=== PATIENT | male | born 1965 | race Caucasian/White ===

== ENCOUNTER 2020-08-23 09:15 | Inpatient (IN) | payer OTHER ==
[2020-08-23 09:56] VITALS: BMI 17.9
[2020-08-23] MEDS ORDERED: chlordiazePOXIDE HCL 25 MG CAPSULE PO PRN (10:25)
[2020-08-23] MEDS ORDERED: NICOTINE POLACRILEX 2 MG GUM BUC PRN (10:25)
[2020-08-23] MEDS ORDERED: MAG HYDROX/AL HYDROX/SIMETH 30 ML UNIT-DOSE CUP PO PRN (10:25)
[2020-08-23] MEDS ORDERED: IBUPROFEN 400 MG TABLET (FP) PO PRN (10:25)
[2020-08-23] MEDS ORDERED: METHOCARBAMOL 500 MG TABLET PO PRN (10:25)
[2020-08-23] MEDS ORDERED: ONDANSETRON *ODT* 4 MG TABLET SL PRN (10:25)
[2020-08-23] MEDS ORDERED: MAGNESIUM HYDROX 2400MG/30ML ORAL SUSPENSION 30 ML CUP PO PRN (10:25)
[2020-08-23] MEDS ORDERED: BISMUTH SUBSALICYLATE 262 MG/15 ML BTL PO PRN (10:25)
[2020-08-23] MEDS ORDERED: MAGNESIUM CITRATE 300 ML BOTTLE PO PRN (10:25)
[2020-08-23] MEDS ORDERED: ACETAMINOPHEN 325 MG TABLET (FP) PO PRN ×2 (10:25)
[2020-08-23] MEDS ORDERED: MENTHOL/PHENOL 1 EACH UD MM PRN (10:25)
[2020-08-23] MEDS ORDERED: METHADONE HCL 10 MG TABLET (FOR DETOX USE ONLY) PO ONE (10:25)
[2020-08-23] MEDS ORDERED: cloNIDine HCL 0.1 MG TABLET PO PRN (10:25)
[2020-08-23] MEDS ORDERED: PATIENT'S OWN MEDICATION (NON-FORMULARY) (Dolutegravir Sodium/Lamivudine [Dovato 50-300 Mg PO SCH (10:30)
[2020-08-23] MEDS ORDERED: PATIENT'S OWN MEDICATION (NON-FORMULARY) (Bictegrav/Emtricit/Tenofov Ala 1 EACH Tablet) PO SCH (10:30)
[2020-08-23] MEDS: chlordiazePOXIDE HCL 25 MG CAPSULE PO SCH ×3 (11:25→22:32)
[2020-08-23] MEDS: NICOTINE 7 MG/24 HOURS TOPICAL PATCH TD SCH (11:30)
[2020-08-23] MEDS: PRENATAL VITAMINS W/ FOLIC ACID TABLET (FP) PO SCH (11:30)
[2020-08-23] MEDS: DOLUTEGRAVIR SODIUM 50 MG TABLET (NON-FORMULARY) PO SCH (12:11)
[2020-08-23] MEDS: DAPSONE 100 MG TABLET PO SCH (12:11)
[2020-08-23] MEDS: hydrOXYzine PAMOATE 25 MG CAPSULE (FP) PO SCH ×3 (14:03→22:32)
[2020-08-23 14:12] LABS: POTASSIUM 4.3 mmol/L (3.5-5.1)
[2020-08-23 14:13] LABS: HEMATOCRIT 44.3 % (35.4-49); HEMOGLOBIN 14.7 GM/dL (11.7-16.9); MCH 31.5 pg (25.7-33.7); MCHC 33.1 g/dl (32.0-35.9); MEAN CELL VOLUME 95.2 fl (80-96); MEAN PLT VOLUME 9.3 fl (7.5-11.1); PLATELET COUNT 213 K/MM3 (134-434); RBC 4.66 M/mm3 (4.00-5.60); RDW 15.3 % (11.9-15.9); WHITE BLOOD COUNT 4.3 K/mm3 (4.0-10.0)
[2020-08-23 14:17] LABS: ALBUMIN 3.2 g/dl (3.4-5.0); CALCIUM 9.1 mg/dL (8.5-10.1)
[2020-08-23 14:18] LABS: BLOOD UREA NITROGEN 11.2 mg/dL (7-18)
[2020-08-23 14:21] LABS: CREATININE 0.8 mg/dL (0.55-1.3)
[2020-08-23 14:22] LABS: BILIRUBIN,TOTAL 0.7 mg/dL (0.2-1); TOT PROT 8.6 g/dl (6.4-8.2)
[2020-08-23] MEDS: QUEtiapine FUMARATE 25 MG TABLET PO SCH (22:32)
[2020-08-23] MEDS: THIAMINE HCL 100 MG TABLET (FP) PO SCH (22:32)
[2020-08-23] MEDS: MELATONIN 5 MG TABLETS PO SCH (22:32)
[2020-08-24] MEDS: chlordiazePOXIDE HCL 25 MG CAPSULE PO SCH ×4 (05:23→22:19)
[2020-08-24] MEDS: hydrOXYzine PAMOATE 25 MG CAPSULE (FP) PO SCH ×5 (05:24→22:19)
[2020-08-24] MEDS ORDERED: METHADONE HCL 10 MG TABLET (FOR DETOX USE ONLY) ONE (08:27)
[2020-08-24] MEDS ORDERED: METHADONE HCL 5 MG TABLET (FOR DETOX USE ONLY) ONE (08:27)
[2020-08-24] MEDS ORDERED: METHADONE (DETOX) 20 MG, METHADONE (DETOX) 5 MG PO ONE (10:00)
[2020-08-24] MEDS: PRENATAL VITAMINS W/ FOLIC ACID TABLET (FP) PO SCH (10:30)
[2020-08-24] MEDS: DAPSONE 100 MG TABLET PO SCH (10:30)
[2020-08-24] MEDS: DOLUTEGRAVIR SODIUM 50 MG TABLET (NON-FORMULARY) PO SCH (10:34)
[2020-08-24] MEDS: NICOTINE 7 MG/24 HOURS TOPICAL PATCH TD SCH (10:35)
[2020-08-24] MEDS ORDERED: FLU VACCINE (FLULAVAL) PF 60 MCG/0.5 ML SYRINGE 2020-2021 IM ONE (12:00)
[2020-08-24] MEDS: THIAMINE HCL 100 MG TABLET (FP) PO SCH (22:19)
[2020-08-24] MEDS: QUEtiapine FUMARATE 25 MG TABLET PO SCH (22:19)
[2020-08-24] MEDS: MELATONIN 5 MG TABLETS PO SCH (22:19)
[2020-08-25] MEDS: hydrOXYzine PAMOATE 25 MG CAPSULE (FP) PO SCH ×5 (06:04→22:05)
[2020-08-25] MEDS: chlordiazePOXIDE HCL 25 MG CAPSULE PO SCH ×4 (06:04→22:08)
[2020-08-25] MEDS: PRENATAL VITAMINS W/ FOLIC ACID TABLET (FP) PO SCH (09:45)
[2020-08-25] MEDS: NICOTINE 7 MG/24 HOURS TOPICAL PATCH TD SCH (09:46)
[2020-08-25] MEDS: DAPSONE 100 MG TABLET PO SCH (09:46)
[2020-08-25] MEDS: DOLUTEGRAVIR SODIUM 50 MG TABLET (NON-FORMULARY) PO SCH (09:48)
[2020-08-25] MEDS ORDERED: METHADONE HCL 10 MG TABLET (FOR DETOX USE ONLY) PO ONE (10:00)
[2020-08-25] MEDS: MELATONIN 5 MG TABLETS PO SCH (22:05)
[2020-08-25] MEDS: THIAMINE HCL 100 MG TABLET (FP) PO SCH (22:05)
[2020-08-25] MEDS: QUEtiapine FUMARATE 25 MG TABLET PO SCH (22:49)
[2020-08-26] MEDS ORDERED: chlordiazePOXIDE HCL 10 MG CAPSULE PO PRN
[2020-08-26] MEDS: hydrOXYzine PAMOATE 25 MG CAPSULE (FP) PO SCH ×5 (05:56→22:04)
[2020-08-26] MEDS: chlordiazePOXIDE HCL 10 MG CAPSULE PO SCH ×4 (05:56→22:04)
[2020-08-26] MEDS ORDERED: METHADONE HCL 10 MG TABLET (FOR DETOX USE ONLY) ONE (09:21)
[2020-08-26] MEDS ORDERED: METHADONE HCL 5 MG TABLET (FOR DETOX USE ONLY) ONE (09:22)
[2020-08-26] MEDS ORDERED: METHADONE (DETOX) 10 MG, METHADONE (DETOX) 5 MG PO ONE (10:00)
[2020-08-26] MEDS: PRENATAL VITAMINS W/ FOLIC ACID TABLET (FP) PO SCH (10:27)
[2020-08-26] MEDS: DAPSONE 100 MG TABLET PO SCH (10:32)
[2020-08-26] MEDS: NICOTINE 7 MG/24 HOURS TOPICAL PATCH TD SCH (10:32)
[2020-08-26] MEDS: DOLUTEGRAVIR SODIUM 50 MG TABLET (NON-FORMULARY) PO SCH (10:32)
[2020-08-26] MEDS: QUEtiapine FUMARATE 25 MG TABLET PO SCH (22:04)
[2020-08-26] MEDS: MELATONIN 5 MG TABLETS PO SCH (22:05)
[2020-08-26] MEDS: THIAMINE HCL 100 MG TABLET (FP) PO SCH (22:05)
[2020-08-27] MEDS: hydrOXYzine PAMOATE 25 MG CAPSULE (FP) PO SCH ×2 (06:28→10:15)
[2020-08-27] MEDS: chlordiazePOXIDE HCL 10 MG CAPSULE PO SCH ×2 (06:29→17:28)
[2020-08-27] MEDS ORDERED: METHADONE HCL 10 MG TABLET (FOR DETOX USE ONLY) PO ONE (10:00)
[2020-08-27] MEDS: PRENATAL VITAMINS W/ FOLIC ACID TABLET (FP) PO SCH (10:13)
[2020-08-27] MEDS: DAPSONE 100 MG TABLET PO SCH (10:13)
[2020-08-27] MEDS: DOLUTEGRAVIR SODIUM 50 MG TABLET (NON-FORMULARY) PO SCH (10:15)
[2020-08-27] MEDS: NICOTINE 7 MG/24 HOURS TOPICAL PATCH TD SCH (10:15)
[2020-08-27] MEDS ORDERED: hydrOXYzine PAMOATE 25 MG CAPSULE (FP) PO PRN (10:29)
[2020-08-27] MEDS ORDERED: FLU VACCINE (FLULAVAL) PF 60 MCG/0.5 ML SYRINGE 2020-2021 IM ONE (12:00)
[2020-08-27] MEDS ORDERED: QUEtiapine FUMARATE 50 MG TABLET PO SCH (22:00)
[2020-08-27] MEDS: MELATONIN 5 MG TABLETS PO SCH (22:02)
[2020-08-27] MEDS: THIAMINE HCL 100 MG TABLET (FP) PO SCH (22:02)
[2020-08-28] MEDS ORDERED: chlordiazePOXIDE HCL 10 MG CAPSULE PO ONE (05:00)
[2020-08-28] MEDS ORDERED: METHADONE HCL 5 MG TABLET (FOR DETOX USE ONLY) PO ONE (06:00)
[2020-08-28 06:05] VITALS: BP 100/64; PULSE 66; TEMP 96.6
== END 2020-08-28 10:13 | disposition home or self-care (01) | DRG 773 ==
LOC: YASAS 09:15 → Y3N 10:09
PROVIDERS: ADMIT Allergy & Immunology; ATTEND Allergy & Immunology
PROC: HZ2ZZZZ Detoxification Services for Substance Abuse Treatment (ICD-10-PCS; principal; 2020-08-23)
DX: F11.23 Opioid dependence with withdrawal (principal); F10.230 Alcohol dependence with withdrawal, uncomplicated; F13.10 Sedative, hypnotic or anxiolytic abuse, uncomplicated; F17.210 Nicotine dependence, cigarettes, uncomplicated; F19.282 Other psychoactive substance dependence with psychoactive substance-induced sleep disorder; F19.24 Other psychoactive substance dependence with psychoactive substance-induced mood disorder; F10.280 Alcohol dependence with alcohol-induced anxiety disorder; F10.282 Alcohol dependence with alcohol-induced sleep disorder; F31.9 Bipolar disorder, unspecified; B20 Human immunodeficiency virus [HIV] disease; G40.509 Epileptic seizures related to external causes, not intractable, without status epilepticus; G47.00 Insomnia, unspecified; J45.909 Unspecified asthma, uncomplicated; R63.4 Abnormal weight loss; Z68.1 Body mass index [BMI] 19.9 or less, adult; Z86.19 Personal history of other infectious and parasitic diseases; Z56.0 Unemployment, unspecified
CPT/HCPCS: 36415; 80053; 85027; 86780; 93005; 93010; C9803; G0008; Q2036; U0003

== ENCOUNTER 2020-10-06 12:06 | Inpatient (IN) | payer OTHER ==
[2020-10-06 13:25] VITALS: BMI 17.4
[2020-10-06] MEDS ORDERED: NICOTINE POLACRILEX 2 MG GUM BUC PRN (14:27)
[2020-10-06] MEDS ORDERED: IBUPROFEN 400 MG TABLET (FP) PO PRN (14:27)
[2020-10-06] MEDS ORDERED: METHADONE HCL 10 MG TABLET (FOR DETOX USE ONLY) PO ONE (14:27)
[2020-10-06] MEDS ORDERED: BISMUTH SUBSALICYLATE 524 MG/30 ML UD PO PRN (14:27)
[2020-10-06] MEDS ORDERED: cloNIDine HCL 0.1 MG TABLET PO PRN (14:27)
[2020-10-06] MEDS ORDERED: MAG HYDROX/AL HYDROX/SIMETH 30 ML UNIT-DOSE CUP PO PRN (14:27)
[2020-10-06] MEDS ORDERED: MENTHOL/PHENOL 1 EACH UD MM PRN (14:27)
[2020-10-06] MEDS ORDERED: MAGNESIUM HYDROX 2400MG/30ML ORAL SUSPENSION 30 ML CUP PO PRN (14:27)
[2020-10-06] MEDS ORDERED: ONDANSETRON *ODT* 4 MG TABLET SL PRN (14:27)
[2020-10-06] MEDS ORDERED: diazePAM 5 MG TABLET PO PRN (14:27)
[2020-10-06] MEDS ORDERED: ACETAMINOPHEN 325 MG TABLET (FP) PO PRN ×2 (14:27)
[2020-10-06] MEDS ORDERED: METHOCARBAMOL 500 MG TABLET PO PRN (14:27)
[2020-10-06] MEDS ORDERED: MAGNESIUM CITRATE 300 ML BOTTLE PO PRN (14:27)
[2020-10-06] MEDS: hydrOXYzine PAMOATE 25 MG CAPSULE (FP) PO SCH ×2 (18:40→22:58)
[2020-10-06] MEDS: diazePAM 5 MG TABLET PO SCH ×2 (18:40→22:58)
[2020-10-06] MEDS: THIAMINE HCL 100 MG TABLET (FP) PO SCH (22:58)
[2020-10-06] MEDS: MELATONIN 5 MG TABLETS PO SCH (22:59)
[2020-10-07] MEDS: hydrOXYzine PAMOATE 25 MG CAPSULE (FP) PO SCH ×5 (07:22→22:44)
[2020-10-07] MEDS: diazePAM 5 MG TABLET PO SCH ×4 (07:23→22:44)
[2020-10-07] MEDS ORDERED: METHADONE HCL 10 MG TABLET (FOR DETOX USE ONLY) ONE (09:06)
[2020-10-07] MEDS ORDERED: METHADONE HCL 5 MG TABLET (FOR DETOX USE ONLY) ONE (09:06)
[2020-10-07] MEDS ORDERED: METHADONE (DETOX) 20 MG, METHADONE (DETOX) 5 MG PO ONE (10:00)
[2020-10-07] MEDS ORDERED: PRENATAL VITAMINS W/ FOLIC ACID TABLET (FP) PO SCH (10:00)
[2020-10-07] MEDS ORDERED: ALBUTEROL SO4 HFA INHALER IH PRN (11:33)
[2020-10-07] MEDS: THIAMINE HCL 100 MG TABLET (FP) PO SCH (22:44)
[2020-10-07] MEDS: MELATONIN 5 MG TABLETS PO SCH (22:45)
[2020-10-08] MEDS ORDERED: diazePAM 5 MG TABLET PO SCH (06:00)
[2020-10-08] MEDS: hydrOXYzine PAMOATE 25 MG CAPSULE (FP) PO SCH (07:30)
[2020-10-08 08:28] VITALS: BP 120/73; PULSE 85; TEMP 97.7
[2020-10-08] MEDS ORDERED: METHADONE HCL 10 MG TABLET (FOR DETOX USE ONLY) PO ONE (10:00)
[2020-10-09] MEDS ORDERED: diazePAM 5 MG TABLET PO SCH (06:00)
[2020-10-09] MEDS ORDERED: METHADONE (DETOX) 10 MG, METHADONE (DETOX) 5 MG PO ONE (10:00)
[2020-10-10] MEDS ORDERED: diazePAM 5 MG TABLET PO ONE (06:00)
[2020-10-10] MEDS ORDERED: METHADONE HCL 10 MG TABLET (FOR DETOX USE ONLY) PO ONE (10:00)
[2020-10-11] MEDS ORDERED: METHADONE HCL 5 MG TABLET (FOR DETOX USE ONLY) PO ONE (06:00)
== END 2020-10-08 08:52 | disposition left against medical advice (07) | DRG 770 ==
LOC: YASAS 12:06 → Y6N 14:00
PROVIDERS: ADMIT Allergy & Immunology; ATTEND Allergy & Immunology
PROC: HZ2ZZZZ Detoxification Services for Substance Abuse Treatment (ICD-10-PCS; principal; 2020-10-06)
DX: F11.23 Opioid dependence with withdrawal (principal); F10.230 Alcohol dependence with withdrawal, uncomplicated; F17.210 Nicotine dependence, cigarettes, uncomplicated; F19.24 Other psychoactive substance dependence with psychoactive substance-induced mood disorder; U07.1 COVID-19; Z21 Asymptomatic human immunodeficiency virus [HIV] infection status; G47.00 Insomnia, unspecified; J45.909 Unspecified asthma, uncomplicated; R63.4 Abnormal weight loss; Z68.1 Body mass index [BMI] 19.9 or less, adult; Z86.19 Personal history of other infectious and parasitic diseases; Z87.81 Personal history of (healed) traumatic fracture
CPT/HCPCS: C9803; U0003; U0005

== ENCOUNTER 2021-02-13 11:48 | Inpatient (IN) | payer OTHER ==
[2021-02-13 12:20] VITALS: BMI 19.4
[2021-02-13] MEDS ORDERED: MENTHOL/PHENOL 1 EACH UD MM PRN (14:10)
[2021-02-13] MEDS ORDERED: LORazepam 1 MG TABLET PO PRN (14:10)
[2021-02-13] MEDS ORDERED: IBUPROFEN 400 MG TABLET (FP) PO PRN (14:10)
[2021-02-13] MEDS ORDERED: MAGNESIUM HYDROX 2400MG/30ML ORAL SUSPENSION 30 ML CUP PO PRN (14:10)
[2021-02-13] MEDS ORDERED: ACETAMINOPHEN 325 MG TABLET (FP) PO PRN ×2 (14:10)
[2021-02-13] MEDS ORDERED: METHOCARBAMOL 500 MG TABLET PO PRN (14:10)
[2021-02-13] MEDS ORDERED: MAG HYDROX/AL HYDROX/SIMETH 30 ML UNIT-DOSE CUP PO PRN (14:10)
[2021-02-13] MEDS ORDERED: BISMUTH SUBSALICYLATE 262 MG/15 ML BTL PO PRN (14:10)
[2021-02-13] MEDS ORDERED: ONDANSETRON *ODT* 4 MG TABLET SL PRN (14:10)
[2021-02-13] MEDS ORDERED: MAGNESIUM CITRATE 300 ML BOTTLE PO PRN (14:10)
[2021-02-13] MEDS ORDERED: methaDONE HCL 10 MG TABLET PO ONE (14:58)
[2021-02-13] MEDS ORDERED: methaDONE 40 MG, methaDONE 10 MG PO ONE (15:30)
[2021-02-13 15:40] LABS: HEMATOCRIT 36.7 % (35.4-49); HEMOGLOBIN 12.6 GM/dL (11.7-16.9); MCH 31.6 pg (25.7-33.7); MCHC 34.3 g/dl (32.0-35.9); MEAN PLT VOLUME 8.7 fl (7.5-11.1); PLATELET COUNT 138 10^3/uL (134-434); RBC 3.98 M/mm3 (4.00-5.60); RDW 15.1 % (11.9-15.9); WHITE BLOOD COUNT 4.6 K/mm3 (4.0-10.0)
[2021-02-13 15:44] LABS: CALCIUM 7.8 mg/dL (8.5-10.1)
[2021-02-13 15:45] LABS: ALBUMIN 2.7 g/dl (3.4-5.0)
[2021-02-13 15:48] LABS: CREATININE 0.8 mg/dL (0.55-1.3)
[2021-02-13 15:49] LABS: BILIRUBIN,TOTAL 0.3 mg/dL (0.2-1)
[2021-02-13] MEDS ORDERED: methaDONE HCL 10 MG TABLET ONE (17:57)
[2021-02-13] MEDS ORDERED: methaDONE HCL 40 MG DISPERSABLE TABLET ONE (17:57)
[2021-02-13] MEDS: BICTEGRAV/EMTRICIT/TENOFOV (BIKTARVY) 50-200-25 MG TABLET PO SCH (18:03)
[2021-02-13] MEDS: LORazepam 2 MG TABLET PO SCH ×2 (18:04→22:34)
[2021-02-13] MEDS: hydrOXYzine PAMOATE 25 MG CAPSULE (FP) PO SCH ×2 (18:05→22:34)
[2021-02-13] MEDS: PRENATAL VITAMINS W/ FOLIC ACID TABLET (FP) PO SCH (18:11)
[2021-02-13] MEDS: THIAMINE HCL 100 MG TABLET (FP) PO SCH (22:34)
[2021-02-13] MEDS: MELATONIN 5 MG TABLETS PO SCH (22:34)
[2021-02-14] MEDS ORDERED: methaDONE HCL 40 MG DISPERSABLE TABLET ONE (05:19)
[2021-02-14] MEDS ORDERED: methaDONE HCL 10 MG TABLET ONE (05:19)
[2021-02-14] MEDS: methaDONE 40 MG, methaDONE 10 MG PO SCH (05:59)
[2021-02-14] MEDS: LORazepam 2 MG TABLET PO SCH ×4 (05:59→23:35)
[2021-02-14] MEDS: hydrOXYzine PAMOATE 25 MG CAPSULE (FP) PO SCH ×5 (05:59→23:35)
[2021-02-14] MEDS ORDERED: methaDONE HCL 10 MG TABLET PO SCH (06:00)
[2021-02-14] MEDS: BICTEGRAV/EMTRICIT/TENOFOV (BIKTARVY) 50-200-25 MG TABLET PO SCH (10:25)
[2021-02-14] MEDS: PRENATAL VITAMINS W/ FOLIC ACID TABLET (FP) PO SCH (10:25)
[2021-02-14] MEDS: THIAMINE HCL 100 MG TABLET (FP) PO SCH (23:35)
[2021-02-14] MEDS: MELATONIN 5 MG TABLETS PO SCH (23:35)
[2021-02-15] MEDS ORDERED: methaDONE HCL 40 MG DISPERSABLE TABLET ONE (04:24)
[2021-02-15] MEDS ORDERED: methaDONE HCL 10 MG TABLET ONE (04:24)
[2021-02-15] MEDS: hydrOXYzine PAMOATE 25 MG CAPSULE (FP) PO SCH ×5 (05:27→22:42)
[2021-02-15] MEDS: methaDONE 40 MG, methaDONE 10 MG PO SCH (05:28)
[2021-02-15] MEDS: LORazepam 1 MG TABLET PO SCH ×4 (05:29→22:43)
[2021-02-15] MEDS: BICTEGRAV/EMTRICIT/TENOFOV (BIKTARVY) 50-200-25 MG TABLET PO SCH (07:02)
[2021-02-15] MEDS: PRENATAL VITAMINS W/ FOLIC ACID TABLET (FP) PO SCH (10:18)
[2021-02-15 11:48] LABS: CALCIUM 8.1 mg/dL (8.5-10.1)
[2021-02-15 11:49] LABS: ALBUMIN 2.6 g/dl (3.4-5.0); BLOOD UREA NITROGEN 19.8 mg/dL (7-18)
[2021-02-15 11:52] LABS: CREATININE 0.7 mg/dL (0.55-1.3)
[2021-02-15 11:54] LABS: BILIRUBIN,TOTAL 0.4 mg/dL (0.2-1); TOT PROT 8.2 g/dl (6.4-8.2)
[2021-02-15] MEDS: THIAMINE HCL 100 MG TABLET (FP) PO SCH (22:42)
[2021-02-15] MEDS: MELATONIN 5 MG TABLETS PO SCH (22:42)
[2021-02-16] MEDS ORDERED: LORazepam 0.5 MG TABLET PO PRN
[2021-02-16] MEDS ORDERED: methaDONE HCL 10 MG TABLET ONE (04:10)
[2021-02-16] MEDS ORDERED: methaDONE HCL 40 MG DISPERSABLE TABLET ONE (04:11)
[2021-02-16] MEDS: methaDONE 40 MG, methaDONE 10 MG PO SCH (05:27)
[2021-02-16] MEDS: LORazepam 0.5 MG TABLET PO SCH ×4 (05:29→22:50)
[2021-02-16] MEDS: hydrOXYzine PAMOATE 25 MG CAPSULE (FP) PO SCH ×5 (05:29→22:50)
[2021-02-16] MEDS: PRENATAL VITAMINS W/ FOLIC ACID TABLET (FP) PO SCH (10:28)
[2021-02-16] MEDS: BICTEGRAV/EMTRICIT/TENOFOV (BIKTARVY) 50-200-25 MG TABLET PO SCH (10:33)
[2021-02-16] MEDS: MELATONIN 5 MG TABLETS PO SCH (22:44)
[2021-02-16] MEDS: THIAMINE HCL 100 MG TABLET (FP) PO SCH (22:50)
[2021-02-17] MEDS ORDERED: methaDONE HCL 10 MG TABLET ONE (02:59)
[2021-02-17] MEDS ORDERED: methaDONE HCL 40 MG DISPERSABLE TABLET ONE (03:00)
[2021-02-17] MEDS ORDERED: LORazepam 0.5 MG TABLET PO ONE (05:00)
[2021-02-17] MEDS: methaDONE 40 MG, methaDONE 10 MG PO SCH (06:24)
[2021-02-17] MEDS: hydrOXYzine PAMOATE 25 MG CAPSULE (FP) PO SCH ×2 (06:25→10:34)
[2021-02-17 09:26] VITALS: BP 103/70; PULSE 83; TEMP 97.3
[2021-02-17] MEDS: PRENATAL VITAMINS W/ FOLIC ACID TABLET (FP) PO SCH (10:33)
== END 2021-02-17 11:55 | disposition other institution (70) | DRG 773 ==
LOC: YASAS 11:48 → Y3N 15:14
PROVIDERS: ADMIT Allergy & Immunology; ATTEND Allergy & Immunology
PROC: HZ2ZZZZ Detoxification Services for Substance Abuse Treatment (ICD-10-PCS; principal; 2021-02-13)
DX: F10.230 Alcohol dependence with withdrawal, uncomplicated (principal); F11.20 Opioid dependence, uncomplicated; F17.210 Nicotine dependence, cigarettes, uncomplicated; Z21 Asymptomatic human immunodeficiency virus [HIV] infection status; R63.4 Abnormal weight loss; J44.9 Chronic obstructive pulmonary disease, unspecified; Z86.19 Personal history of other infectious and parasitic diseases
CPT/HCPCS: 36415; 80053; 85027; 86780; C9803; Q0162; U0003; U0005

== ENCOUNTER 2021-02-17 11:59 | Inpatient (IN) | payer OTHER ==
[~2021-02-17 11:59] MED LIST: ACETAMINOPHEN 325 MG TABLET (FP) PO PRN; IBUPROFEN 400 MG TABLET (FP) PO PRN; LOPERAMIDE HCL 2 MG CAPSULE PO PRN; MAG HYDROX/AL HYDROX/SIMETH 30 ML UNIT-DOSE CUP PO PRN; MAGNESIUM CITRATE 300 ML BOTTLE PO PRN; MAGNESIUM HYDROX 2400MG/30ML ORAL SUSPENSION 30 ML CUP PO PRN; P-EPHED 60MG/TRIPROLIDI 2.5MG TABLET PO PRN
[2021-02-17] MEDS: hydrOXYzine PAMOATE 25 MG CAPSULE (FP) PO SCH ×3 (15:17→23:12)
[2021-02-17] MEDS: THIAMINE HCL 100 MG TABLET (FP) PO SCH (23:12)
[2021-02-17] MEDS: MELATONIN 5 MG TABLETS PO SCH (23:12)
[2021-02-18] MEDS ORDERED: methaDONE HCL 10 MG TABLET PO SCH (06:00)
[2021-02-18] MEDS ORDERED: methaDONE HCL 40 MG DISPERSABLE TABLET ONE (06:05)
[2021-02-18] MEDS ORDERED: methaDONE HCL 10 MG TABLET ONE (06:05)
[2021-02-18] MEDS: hydrOXYzine PAMOATE 25 MG CAPSULE (FP) PO SCH ×5 (06:31→22:01)
[2021-02-18] MEDS: methaDONE 40 MG, methaDONE 10 MG PO SCH (06:31)
[2021-02-18] MEDS: BICTEGRAV/EMTRICIT/TENOFOV (BIKTARVY) 50-200-25 MG TABLET PO SCH (08:58)
[2021-02-18] MEDS ORDERED: SUVOREXANT 10 MG TABLET PO PRN (09:50)
[2021-02-18] MEDS ORDERED: COLLOIDAL OATMEAL 1 BAR EACH TP PRN (09:50)
[2021-02-18] MEDS: PRENATAL VITAMINS W/ FOLIC ACID TABLET (FP) PO SCH (09:55)
[2021-02-18] MEDS: MINERAL OIL/PETROLAT/WATER TOPICAL CREAM 113 GM JAR TP SCH ×2 (17:41→22:00)
[2021-02-18] MEDS: HYDROCORTISONE 1% TOPICAL CREAM 30 GM TUBE TP SCH ×2 (17:42→21:07)
[2021-02-18] MEDS: THIAMINE HCL 100 MG TABLET (FP) PO SCH (21:04)
[2021-02-18] MEDS: MELATONIN 5 MG TABLETS PO SCH (22:01)
[2021-02-19] MEDS ORDERED: methaDONE HCL 40 MG DISPERSABLE TABLET ONE (03:14)
[2021-02-19] MEDS ORDERED: methaDONE HCL 10 MG TABLET ONE (03:14)
[2021-02-19] MEDS: hydrOXYzine PAMOATE 25 MG CAPSULE (FP) PO SCH ×2 (06:11→10:51)
[2021-02-19] MEDS: methaDONE 40 MG, methaDONE 10 MG PO SCH (06:11)
[2021-02-19] MEDS ORDERED: PT OWN MED DRAWER 7, Y5N ONE ×3 (06:12→19:19)
[2021-02-19] MEDS: BICTEGRAV/EMTRICIT/TENOFOV (BIKTARVY) 50-200-25 MG TABLET PO SCH (07:14)
[2021-02-19] MEDS: MINERAL OIL/PETROLAT/WATER TOPICAL CREAM 113 GM JAR TP SCH ×2 (10:51→21:41)
[2021-02-19] MEDS: HYDROCORTISONE 1% TOPICAL CREAM 30 GM TUBE TP SCH ×2 (10:51→21:41)
[2021-02-19] MEDS: PRENATAL VITAMINS W/ FOLIC ACID TABLET (FP) PO SCH (10:51)
[2021-02-19] MEDS ORDERED: SUVOREXANT 10 MG TABLET PO PRN (12:50)
[2021-02-19] MEDS: hydrOXYzine PAMOATE 50 MG CAPSULE (FP) PO SCH ×3 (14:09→21:40)
[2021-02-19] MEDS: guaiFENesin 200 MG/10 ML 10 ML UNIT-DOSE CUPS PO PRN (14:09)
[2021-02-19] MEDS: THIAMINE HCL 100 MG TABLET (FP) PO SCH (21:39)
[2021-02-19] MEDS: SUVOREXANT 15 MG TABLET PO PRN (21:40)
[2021-02-20] MEDS ORDERED: methaDONE HCL 40 MG DISPERSABLE TABLET ONE (04:19)
[2021-02-20] MEDS ORDERED: methaDONE HCL 10 MG TABLET ONE (04:19)
[2021-02-20] MEDS: methaDONE 40 MG, methaDONE 10 MG PO SCH (06:52)
[2021-02-20] MEDS: hydrOXYzine PAMOATE 50 MG CAPSULE (FP) PO SCH ×5 (06:53→21:03)
[2021-02-20] MEDS ORDERED: PT OWN MED DRAWER 7, Y5N ONE (09:42)
[2021-02-20] MEDS: PRENATAL VITAMINS W/ FOLIC ACID TABLET (FP) PO SCH (10:28)
[2021-02-20] MEDS: BICTEGRAV/EMTRICIT/TENOFOV (BIKTARVY) 50-200-25 MG TABLET PO SCH (10:28)
[2021-02-20] MEDS: guaiFENesin 200 MG/10 ML 10 ML UNIT-DOSE CUPS PO PRN ×2 (10:28→17:12)
[2021-02-20] MEDS: HYDROCORTISONE 1% TOPICAL CREAM 30 GM TUBE TP SCH ×2 (10:28→21:03)
[2021-02-20] MEDS: MINERAL OIL/PETROLAT/WATER TOPICAL CREAM 113 GM JAR TP SCH ×2 (10:28→21:03)
[2021-02-20] MEDS: SUVOREXANT 15 MG TABLET PO PRN (21:03)
[2021-02-20] MEDS: THIAMINE HCL 100 MG TABLET (FP) PO SCH (21:03)
[2021-02-21] MEDS ORDERED: methaDONE HCL 40 MG DISPERSABLE TABLET ONE (03:44)
[2021-02-21] MEDS ORDERED: methaDONE HCL 10 MG TABLET ONE (03:45)
[2021-02-21] MEDS: hydrOXYzine PAMOATE 50 MG CAPSULE (FP) PO SCH ×5 (06:08→21:01)
[2021-02-21] MEDS: methaDONE 40 MG, methaDONE 10 MG PO SCH (06:08)
[2021-02-21] MEDS: BICTEGRAV/EMTRICIT/TENOFOV (BIKTARVY) 50-200-25 MG TABLET PO SCH (08:10)
[2021-02-21] MEDS: MINERAL OIL/PETROLAT/WATER TOPICAL CREAM 113 GM JAR TP SCH ×2 (10:09→21:02)
[2021-02-21] MEDS: HYDROCORTISONE 1% TOPICAL CREAM 30 GM TUBE TP SCH ×2 (10:09→21:02)
[2021-02-21] MEDS: PRENATAL VITAMINS W/ FOLIC ACID TABLET (FP) PO SCH (10:10)
[2021-02-21] MEDS: guaiFENesin 200 MG/10 ML 10 ML UNIT-DOSE CUPS PO PRN (14:01)
[2021-02-21] MEDS: THIAMINE HCL 100 MG TABLET (FP) PO SCH (21:01)
[2021-02-21] MEDS: SUVOREXANT 15 MG TABLET PO PRN (21:02)
[2021-02-22] MEDS ORDERED: methaDONE HCL 10 MG TABLET ONE (04:19)
[2021-02-22] MEDS ORDERED: methaDONE HCL 40 MG DISPERSABLE TABLET ONE (04:19)
[2021-02-22] MEDS: hydrOXYzine PAMOATE 50 MG CAPSULE (FP) PO SCH ×5 (06:22→21:13)
[2021-02-22] MEDS: methaDONE 40 MG, methaDONE 10 MG PO SCH (06:22)
[2021-02-22] MEDS: BICTEGRAV/EMTRICIT/TENOFOV (BIKTARVY) 50-200-25 MG TABLET PO SCH (10:12)
[2021-02-22] MEDS: MINERAL OIL/PETROLAT/WATER TOPICAL CREAM 113 GM JAR TP SCH ×2 (10:55→21:15)
[2021-02-22] MEDS: HYDROCORTISONE 1% TOPICAL CREAM 30 GM TUBE TP SCH ×2 (10:55→21:15)
[2021-02-22] MEDS: PRENATAL VITAMINS W/ FOLIC ACID TABLET (FP) PO SCH (11:42)
[2021-02-22] MEDS: SUVOREXANT 20 MG TABLET PO PRN (21:14)
[2021-02-22] MEDS: THIAMINE HCL 100 MG TABLET (FP) PO SCH (21:14)
[2021-02-23] MEDS ORDERED: methaDONE HCL 10 MG TABLET ONE (03:47)
[2021-02-23] MEDS ORDERED: methaDONE HCL 40 MG DISPERSABLE TABLET ONE (03:47)
[2021-02-23] MEDS: hydrOXYzine PAMOATE 50 MG CAPSULE (FP) PO SCH ×5 (06:06→21:44)
[2021-02-23] MEDS: methaDONE 40 MG, methaDONE 10 MG PO SCH (06:06)
[2021-02-23] MEDS: BICTEGRAV/EMTRICIT/TENOFOV (BIKTARVY) 50-200-25 MG TABLET PO SCH (07:04)
[2021-02-23] MEDS: SELENIUM SULFIDE 2.5% LOTION 4 OZ. TP SCH ×2 (09:11→10:27)
[2021-02-23] MEDS: MINERAL OIL/PETROLAT/WATER TOPICAL CREAM 113 GM JAR TP SCH ×2 (10:26→21:45)
[2021-02-23] MEDS: PRENATAL VITAMINS W/ FOLIC ACID TABLET (FP) PO SCH (10:26)
[2021-02-23] MEDS: HYDROCORTISONE 1% TOPICAL CREAM 30 GM TUBE TP SCH ×2 (10:26→21:45)
[2021-02-23] MEDS: THIAMINE HCL 100 MG TABLET (FP) PO SCH (21:44)
[2021-02-23] MEDS: SUVOREXANT 20 MG TABLET PO PRN (21:44)
[2021-02-24] MEDS ORDERED: methaDONE HCL 10 MG TABLET ONE (03:27)
[2021-02-24] MEDS ORDERED: methaDONE HCL 40 MG DISPERSABLE TABLET ONE (03:27)
[2021-02-24] MEDS: methaDONE 40 MG, methaDONE 10 MG PO SCH (06:04)
[2021-02-24] MEDS: hydrOXYzine PAMOATE 50 MG CAPSULE (FP) PO SCH ×5 (06:04→21:02)
[2021-02-24] MEDS: BICTEGRAV/EMTRICIT/TENOFOV (BIKTARVY) 50-200-25 MG TABLET PO SCH (07:36)
[2021-02-24] MEDS: MINERAL OIL/PETROLAT/WATER TOPICAL CREAM 113 GM JAR TP SCH ×2 (10:36→23:19)
[2021-02-24] MEDS: PRENATAL VITAMINS W/ FOLIC ACID TABLET (FP) PO SCH (10:37)
[2021-02-24] MEDS: HYDROCORTISONE 1% TOPICAL CREAM 30 GM TUBE TP SCH ×2 (10:37→23:19)
[2021-02-24] MEDS: SELENIUM SULFIDE 2.5% LOTION 4 OZ. TP SCH (10:37)
[2021-02-24] MEDS: SUVOREXANT 20 MG TABLET PO PRN (21:01)
[2021-02-24] MEDS: THIAMINE HCL 100 MG TABLET (FP) PO SCH (21:02)
[2021-02-25] MEDS ORDERED: methaDONE HCL 40 MG DISPERSABLE TABLET ONE (05:57)
[2021-02-25] MEDS ORDERED: methaDONE HCL 10 MG TABLET ONE (05:58)
[2021-02-25] MEDS ORDERED: methaDONE HCL 10 MG TABLET PO SCH (06:00)
[2021-02-25] MEDS: hydrOXYzine PAMOATE 50 MG CAPSULE (FP) PO SCH ×5 (06:32→21:39)
[2021-02-25] MEDS: methaDONE 40 MG, methaDONE 10 MG PO SCH (06:32)
[2021-02-25] MEDS ORDERED: MODERNA COVID-19 VACC,MRNA/PF 100 MCG/0.5 ML IM ONE (10:00)
[2021-02-25] MEDS: HYDROCORTISONE 1% TOPICAL CREAM 30 GM TUBE TP SCH (10:22)
[2021-02-25] MEDS: MINERAL OIL/PETROLAT/WATER TOPICAL CREAM 113 GM JAR TP SCH ×2 (10:22→21:40)
[2021-02-25] MEDS: SELENIUM SULFIDE 2.5% LOTION 4 OZ. TP SCH (10:22)
[2021-02-25] MEDS: PRENATAL VITAMINS W/ FOLIC ACID TABLET (FP) PO SCH (10:51)
[2021-02-25] MEDS: BICTEGRAV/EMTRICIT/TENOFOV (BIKTARVY) 50-200-25 MG TABLET PO SCH (10:58)
[2021-02-25] MEDS: SUVOREXANT 20 MG TABLET PO PRN (21:38)
[2021-02-25] MEDS: THIAMINE HCL 100 MG TABLET (FP) PO SCH (21:38)
[2021-02-26] MEDS ORDERED: methaDONE HCL 10 MG TABLET ONE (02:54)
[2021-02-26] MEDS ORDERED: methaDONE HCL 40 MG DISPERSABLE TABLET ONE (02:54)
[2021-02-26] MEDS: hydrOXYzine PAMOATE 50 MG CAPSULE (FP) PO SCH ×5 (06:33→22:15)
[2021-02-26] MEDS: methaDONE 40 MG, methaDONE 10 MG PO SCH (06:33)
[2021-02-26] MEDS: BICTEGRAV/EMTRICIT/TENOFOV (BIKTARVY) 50-200-25 MG TABLET PO SCH (07:49)
[2021-02-26] MEDS: PRENATAL VITAMINS W/ FOLIC ACID TABLET (FP) PO SCH (10:21)
[2021-02-26] MEDS: SELENIUM SULFIDE 2.5% LOTION 4 OZ. TP SCH (10:21)
[2021-02-26] MEDS: MINERAL OIL/PETROLAT/WATER TOPICAL CREAM 113 GM JAR TP SCH ×2 (10:21→21:02)
[2021-02-26] MEDS: SUVOREXANT 20 MG TABLET PO PRN (21:02)
[2021-02-26] MEDS: THIAMINE HCL 100 MG TABLET (FP) PO SCH (21:02)
[2021-02-27] MEDS ORDERED: methaDONE HCL 40 MG DISPERSABLE TABLET ONE (03:36)
[2021-02-27] MEDS ORDERED: methaDONE HCL 10 MG TABLET ONE (03:36)
[2021-02-27] MEDS: methaDONE 40 MG, methaDONE 10 MG PO SCH (06:38)
[2021-02-27] MEDS: hydrOXYzine PAMOATE 50 MG CAPSULE (FP) PO SCH ×5 (06:38→21:44)
[2021-02-27] MEDS: BICTEGRAV/EMTRICIT/TENOFOV (BIKTARVY) 50-200-25 MG TABLET PO SCH (07:37)
[2021-02-27] MEDS ORDERED: PT OWN MED DRAWER 7, Y5N ONE (09:23)
[2021-02-27] MEDS: MINERAL OIL/PETROLAT/WATER TOPICAL CREAM 113 GM JAR TP SCH ×2 (10:46→21:45)
[2021-02-27] MEDS: PRENATAL VITAMINS W/ FOLIC ACID TABLET (FP) PO SCH (10:46)
[2021-02-27] MEDS: SELENIUM SULFIDE 2.5% LOTION 4 OZ. TP SCH (10:46)
[2021-02-27] MEDS: THIAMINE HCL 100 MG TABLET (FP) PO SCH (21:44)
[2021-02-27] MEDS: SUVOREXANT 20 MG TABLET PO PRN (21:45)
[2021-02-28] MEDS ORDERED: methaDONE HCL 40 MG DISPERSABLE TABLET ONE (04:19)
[2021-02-28] MEDS ORDERED: methaDONE HCL 10 MG TABLET ONE (04:20)
[2021-02-28] MEDS: methaDONE 40 MG, methaDONE 10 MG PO SCH (06:10)
[2021-02-28] MEDS: hydrOXYzine PAMOATE 50 MG CAPSULE (FP) PO SCH ×5 (06:10→21:22)
[2021-02-28] MEDS: BICTEGRAV/EMTRICIT/TENOFOV (BIKTARVY) 50-200-25 MG TABLET PO SCH (07:05)
[2021-02-28] MEDS: MINERAL OIL/PETROLAT/WATER TOPICAL CREAM 113 GM JAR TP SCH ×2 (09:16→21:22)
[2021-02-28] MEDS: PRENATAL VITAMINS W/ FOLIC ACID TABLET (FP) PO SCH (09:16)
[2021-02-28] MEDS: SELENIUM SULFIDE 2.5% LOTION 4 OZ. TP SCH (09:16)
[2021-02-28] MEDS: SUVOREXANT 20 MG TABLET PO PRN (21:21)
[2021-02-28] MEDS: THIAMINE HCL 100 MG TABLET (FP) PO SCH (21:22)
[2021-03-01] MEDS ORDERED: methaDONE HCL 10 MG TABLET ONE (03:10)
[2021-03-01] MEDS ORDERED: methaDONE HCL 40 MG DISPERSABLE TABLET ONE (03:10)
[2021-03-01] MEDS: methaDONE 40 MG, methaDONE 10 MG PO SCH (06:01)
[2021-03-01] MEDS: hydrOXYzine PAMOATE 50 MG CAPSULE (FP) PO SCH ×5 (06:03→21:48)
[2021-03-01] MEDS ORDERED: PT OWN MED DRAWER 7, Y5N ONE (06:03)
[2021-03-01] MEDS: BICTEGRAV/EMTRICIT/TENOFOV (BIKTARVY) 50-200-25 MG TABLET PO SCH (07:16)
[2021-03-01] MEDS: SELENIUM SULFIDE 2.5% LOTION 4 OZ. TP SCH (10:30)
[2021-03-01] MEDS: PRENATAL VITAMINS W/ FOLIC ACID TABLET (FP) PO SCH (10:30)
[2021-03-01] MEDS: MINERAL OIL/PETROLAT/WATER TOPICAL CREAM 113 GM JAR TP SCH ×2 (10:30→21:49)
[2021-03-01] MEDS: SUVOREXANT 20 MG TABLET PO PRN (21:48)
[2021-03-01] MEDS: THIAMINE HCL 100 MG TABLET (FP) PO SCH (21:49)
[2021-03-02] MEDS ORDERED: methaDONE HCL 40 MG DISPERSABLE TABLET ONE (03:15)
[2021-03-02] MEDS ORDERED: methaDONE HCL 10 MG TABLET ONE (03:15)
[2021-03-02] MEDS ORDERED: PT OWN MED DRAWER 7, Y5N ONE ×2 (03:16→06:43)
[2021-03-02] MEDS: methaDONE 40 MG, methaDONE 10 MG PO SCH (06:15)
[2021-03-02] MEDS: hydrOXYzine PAMOATE 50 MG CAPSULE (FP) PO SCH ×5 (06:16→21:06)
[2021-03-02] MEDS: BICTEGRAV/EMTRICIT/TENOFOV (BIKTARVY) 50-200-25 MG TABLET PO SCH (08:18)
[2021-03-02] MEDS: PRENATAL VITAMINS W/ FOLIC ACID TABLET (FP) PO SCH (09:22)
[2021-03-02] MEDS: MINERAL OIL/PETROLAT/WATER TOPICAL CREAM 113 GM JAR TP SCH ×2 (09:22→21:07)
[2021-03-02] MEDS: SUVOREXANT 20 MG TABLET PO PRN (21:06)
[2021-03-02] MEDS: THIAMINE HCL 100 MG TABLET (FP) PO SCH (21:06)
[2021-03-03] MEDS ORDERED: methaDONE HCL 40 MG DISPERSABLE TABLET ONE (03:12)
[2021-03-03] MEDS ORDERED: methaDONE HCL 10 MG TABLET ONE (03:12)
[2021-03-03] MEDS: methaDONE 40 MG, methaDONE 10 MG PO SCH (06:40)
[2021-03-03] MEDS: hydrOXYzine PAMOATE 50 MG CAPSULE (FP) PO SCH ×5 (06:40→21:35)
[2021-03-03] MEDS: BICTEGRAV/EMTRICIT/TENOFOV (BIKTARVY) 50-200-25 MG TABLET PO SCH (07:03)
[2021-03-03 07:13] VITALS: TEMP 98
[2021-03-03] MEDS: PRENATAL VITAMINS W/ FOLIC ACID TABLET (FP) PO SCH (09:05)
[2021-03-03] MEDS: MINERAL OIL/PETROLAT/WATER TOPICAL CREAM 113 GM JAR TP SCH ×2 (09:05→21:35)
[2021-03-03] MEDS: SUVOREXANT 20 MG TABLET PO PRN (21:35)
[2021-03-03] MEDS: THIAMINE HCL 100 MG TABLET (FP) PO SCH (21:35)
[2021-03-04] MEDS ORDERED: methaDONE HCL 40 MG DISPERSABLE TABLET ONE (04:05)
[2021-03-04] MEDS ORDERED: methaDONE HCL 10 MG TABLET ONE (04:06)
[2021-03-04] MEDS ORDERED: methaDONE 40 MG, methaDONE 10 MG PO SCH (06:00)
[2021-03-04] MEDS: hydrOXYzine PAMOATE 50 MG CAPSULE (FP) PO SCH (06:45)
[2021-03-04] MEDS: BICTEGRAV/EMTRICIT/TENOFOV (BIKTARVY) 50-200-25 MG TABLET PO SCH (07:22)
[2021-03-04 07:29] VITALS: BP 129/75; PULSE 58
[2021-03-04] MEDS ORDERED: PT OWN MED DRAWER 7, Y5N ONE (09:32)
[2021-03-04] MEDS ORDERED: SUVOREXANT 20 MG TABLET PO PRN (22:00)
== END 2021-03-04 09:45 | disposition home or self-care (01) | DRG 772 ==
LOC: YASAS 11:59 → Y3W 12:00
PROVIDERS: ADMIT Allergy & Immunology; ATTEND Allergy & Immunology
PROC: HZ42ZZZ Group Counseling for Substance Abuse Treatment, Cognitive-Behavioral (ICD-10-PCS; principal; 2021-02-17)
DX: F10.20 Alcohol dependence, uncomplicated (principal); F11.20 Opioid dependence, uncomplicated; F17.210 Nicotine dependence, cigarettes, uncomplicated; F19.282 Other psychoactive substance dependence with psychoactive substance-induced sleep disorder; Z21 Asymptomatic human immunodeficiency virus [HIV] infection status; G47.00 Insomnia, unspecified; J44.9 Chronic obstructive pulmonary disease, unspecified; R21 Rash and other nonspecific skin eruption; Z86.19 Personal history of other infectious and parasitic diseases
CPT/HCPCS: 0012A; 91301

== ENCOUNTER 2021-08-15 12:32 | Inpatient (IN) | payer OTHER ==
[2021-08-15] MEDS ORDERED: METHOCARBAMOL 500 MG TABLET PO PRN (13:40)
[2021-08-15] MEDS ORDERED: ACETAMINOPHEN 325 MG TABLET (FP) PO PRN ×2 (13:40)
[2021-08-15] MEDS ORDERED: MAGNESIUM HYDROX 2400MG/30ML ORAL SUSPENSION 30 ML CUP PO PRN (13:40)
[2021-08-15] MEDS ORDERED: NICOTINE 10 MG CARTRIDGE (INHALER) IH PRN (13:40)
[2021-08-15] MEDS ORDERED: BISMUTH SUBSALICYLATE 262 MG/15 ML BTL PO PRN (13:40)
[2021-08-15] MEDS ORDERED: ONDANSETRON *ODT* 4 MG TABLET SL PRN (13:40)
[2021-08-15] MEDS ORDERED: MAG HYDROX/AL HYDROX/SIMETH 30 ML UNIT-DOSE CUP PO PRN (13:40)
[2021-08-15] MEDS ORDERED: chlordiazePOXIDE HCL 25 MG CAPSULE PO PRN (13:40)
[2021-08-15] MEDS ORDERED: MAGNESIUM CITRATE 300 ML BOTTLE PO PRN (13:40)
[2021-08-15] MEDS ORDERED: IBUPROFEN 400 MG TABLET (FP) PO PRN (13:40)
[2021-08-15] MEDS ORDERED: MENTHOL/PHENOL 1 EACH UD MM PRN (13:40)
[2021-08-15 13:51] VITALS: BMI 18.8
[2021-08-15] MEDS: hydrOXYzine PAMOATE 25 MG CAPSULE (FP) PO SCH ×3 (15:46→22:55)
[2021-08-15] MEDS: NICOTINE 7 MG/24 HOURS TOPICAL PATCH TD SCH (15:46)
[2021-08-15] MEDS: PRENATAL VITAMINS W/ FOLIC ACID TABLET (FP) PO SCH (15:46)
[2021-08-15 16:48] LABS: CALCIUM 9.3 mg/dL (8.5-10.1)
[2021-08-15 16:49] LABS: ALBUMIN 3.1 g/dl (3.4-5.0); BLOOD UREA NITROGEN 17.4 mg/dL (7-18)
[2021-08-15 16:53] LABS: BILIRUBIN,TOTAL 0.2 mg/dL (0.2-1); TOT PROT 8.7 g/dl (6.4-8.2)
[2021-08-15 16:54] LABS: HEMATOCRIT 37.8 % (35.4-49); HEMOGLOBIN 12.8 GM/dL (11.7-16.9); MCH 32.2 pg (25.7-33.7); MCHC 33.9 g/dl (32.0-35.9); MEAN CELL VOLUME 95.1 fl (80-96); MEAN PLT VOLUME 8.8 fl (7.5-11.1); PLATELET COUNT 149 10^3/uL (134-434); RBC 3.97 M/mm3 (4.00-5.60); RDW 18.5 % (11.9-15.9); WHITE BLOOD COUNT 4.9 K/mm3 (4.0-10.0)
[2021-08-15] MEDS: chlordiazePOXIDE HCL 25 MG CAPSULE PO SCH ×2 (17:58→22:55)
[2021-08-15] MEDS: THIAMINE HCL 100 MG TABLET (FP) PO SCH (22:55)
[2021-08-15] MEDS: MELATONIN 5 MG TABLETS PO SCH (22:55)
[2021-08-15] MEDS: traZODone HCL 50 MG TABLET (FP) PO SCH (22:57)
[2021-08-16] MEDS: chlordiazePOXIDE HCL 25 MG CAPSULE PO SCH ×4 (05:45→22:41)
[2021-08-16] MEDS: hydrOXYzine PAMOATE 25 MG CAPSULE (FP) PO SCH ×5 (05:46→22:41)
[2021-08-16] MEDS: PRENATAL VITAMINS W/ FOLIC ACID TABLET (FP) PO SCH (10:42)
[2021-08-16] MEDS: NICOTINE 7 MG/24 HOURS TOPICAL PATCH TD SCH (10:49)
[2021-08-16] MEDS ORDERED: FERROUS SO4 325 MG TABLET (FP) PO ONE (12:45)
[2021-08-16] MEDS: BICTEGRAV/EMTRICIT/TENOFOV (BIKTARVY) 50-200-25 MG TABLET PO SCH (16:05)
[2021-08-16] MEDS: traZODone HCL 50 MG TABLET (FP) PO SCH (22:41)
[2021-08-16] MEDS: THIAMINE HCL 100 MG TABLET (FP) PO SCH (22:41)
[2021-08-16] MEDS: MELATONIN 5 MG TABLETS PO SCH (22:41)
[2021-08-17] MEDS: hydrOXYzine PAMOATE 25 MG CAPSULE (FP) PO SCH ×5 (05:50→22:55)
[2021-08-17] MEDS: chlordiazePOXIDE HCL 25 MG CAPSULE PO SCH ×5 (05:50→22:55)
[2021-08-17] MEDS: BICTEGRAV/EMTRICIT/TENOFOV (BIKTARVY) 50-200-25 MG TABLET PO SCH (08:52)
[2021-08-17] MEDS: NICOTINE 7 MG/24 HOURS TOPICAL PATCH TD SCH (11:30)
[2021-08-17] MEDS: PRENATAL VITAMINS W/ FOLIC ACID TABLET (FP) PO SCH ×2 (11:31→11:38)
[2021-08-17] MEDS: traZODone HCL 50 MG TABLET (FP) PO SCH (22:55)
[2021-08-17] MEDS: THIAMINE HCL 100 MG TABLET (FP) PO SCH (22:55)
[2021-08-17] MEDS: MELATONIN 5 MG TABLETS PO SCH (23:28)
[2021-08-18] MEDS ORDERED: chlordiazePOXIDE HCL 10 MG CAPSULE PO PRN
[2021-08-18] MEDS ORDERED: chlordiazePOXIDE HCL 10 MG CAPSULE PO SCH (05:00)
[2021-08-18] MEDS: hydrOXYzine PAMOATE 25 MG CAPSULE (FP) PO SCH (05:50)
[2021-08-18 07:01] VITALS: BP 112/60; PULSE 100; TEMP 98
[2021-08-18] MEDS: BICTEGRAV/EMTRICIT/TENOFOV (BIKTARVY) 50-200-25 MG TABLET PO SCH (07:44)
[2021-08-19] MEDS ORDERED: chlordiazePOXIDE HCL 10 MG CAPSULE PO SCH (05:00)
[2021-08-20] MEDS ORDERED: chlordiazePOXIDE HCL 10 MG CAPSULE PO ONE (05:00)
== END 2021-08-18 07:20 | disposition left against medical advice (07) | DRG 770 ==
LOC: YASAS 12:32 → Y6N 15:09
PROVIDERS: ADMIT Allergy & Immunology; ATTEND Allergy & Immunology
PROC: HZ2ZZZZ Detoxification Services for Substance Abuse Treatment (ICD-10-PCS; principal; 2021-08-15)
DX: F10.230 Alcohol dependence with withdrawal, uncomplicated (principal); F11.20 Opioid dependence, uncomplicated; F17.210 Nicotine dependence, cigarettes, uncomplicated; F19.282 Other psychoactive substance dependence with psychoactive substance-induced sleep disorder; F19.24 Other psychoactive substance dependence with psychoactive substance-induced mood disorder; Z21 Asymptomatic human immunodeficiency virus [HIV] infection status; D64.9 Anemia, unspecified; J44.9 Chronic obstructive pulmonary disease, unspecified; B18.2 Chronic viral hepatitis C; R63.4 Abnormal weight loss; Z68.1 Body mass index [BMI] 19.9 or less, adult; Z59.01 Sheltered homelessness
CPT/HCPCS: 36415; 80053; 85027; 86780; C9803; U0003; U0005

== ENCOUNTER 2021-10-16 14:02 | Inpatient (IN) | payer OTHER ==
[2021-10-16] MEDS ORDERED: MELATONIN 5 MG TABLETS PO PRN (17:39)
[2021-10-16] MEDS ORDERED: MAG HYDROX/AL HYDROX/SIMETH 30 ML UNIT-DOSE CUP PO PRN (17:39)
[2021-10-16] MEDS ORDERED: IBUPROFEN 400 MG TABLET (FP) PO PRN (17:39)
[2021-10-16] MEDS ORDERED: ONDANSETRON *ODT* 4 MG TABLET SL PRN (17:39)
[2021-10-16] MEDS ORDERED: BISMUTH SUBSALICYLATE 524 MG/30 ML PO PRN (17:39)
[2021-10-16] MEDS ORDERED: MAGNESIUM HYDROX 2400MG/30ML ORAL SUSPENSION 30 ML CUP PO PRN (17:39)
[2021-10-16] MEDS ORDERED: MENTHOL/PHENOL 1 EACH UD MM PRN (17:39)
[2021-10-16] MEDS ORDERED: LOPERAMIDE HCL 2 MG CAPSULE PO PRN (17:39)
[2021-10-16] MEDS ORDERED: MAGNESIUM CITRATE 300 ML BOTTLE PO PRN (17:39)
[2021-10-16] MEDS ORDERED: DICYCLOMINE HCL 10 MG CAPSULE PO PRN (17:39)
[2021-10-16] MEDS ORDERED: ACETAMINOPHEN 325 MG TABLET (FP) PO PRN ×2 (17:39)
[2021-10-16] MEDS ORDERED: hydrOXYzine PAMOATE 25 MG CAPSULE (FP) PO PRN (17:39)
[2021-10-16] MEDS ORDERED: diazePAM 5 MG TABLET PO ONE (17:42)
[2021-10-16 20:08] VITALS: BMI 18.8
[2021-10-16] MEDS: THIAMINE HCL 100 MG TABLET (FP) PO SCH (22:41)
[2021-10-16] MEDS: diazePAM 5 MG TABLET PO SCH (22:41)
[2021-10-17] MEDS: diazePAM 5 MG TABLET PO SCH ×4 (06:32→22:18)
[2021-10-17] MEDS: PRENATAL VITAMINS W/ FOLIC ACID TABLET (FP) PO SCH (10:47)
[2021-10-17] MEDS: methaDONE HCL 10 MG TABLET PO SCH (10:48)
[2021-10-17] MEDS ORDERED: BICTEGRAV/EMTRICIT/TENOFOV (BIKTARVY) 50-200-25 MG TABLET PO SCH (11:30)
[2021-10-17 12:18] LABS: HEMATOCRIT 40.7 % (35.4-49); HEMOGLOBIN 13.4 GM/dL (11.7-16.9); MCH 31.1 pg (25.7-33.7); MCHC 32.8 g/dl (32.0-35.9); MEAN CELL VOLUME 94.6 fl (80-96); MEAN PLT VOLUME 9.5 fl (7.5-11.1); PLATELET COUNT 147 10^3/uL (134-434); RDW 15.1 % (11.9-15.9); WHITE BLOOD COUNT 3.8 K/mm3 (4.0-10.0)
[2021-10-17 12:23] LABS: ALBUMIN 2.2 g/dl (3.4-5.0); BLOOD UREA NITROGEN 12.9 mg/dL (7-18)
[2021-10-17 12:24] LABS: CALCIUM 8.3 mg/dL (8.5-10.1)
[2021-10-17 12:26] LABS: CREATININE 0.6 mg/dL (0.55-1.3)
[2021-10-17 12:28] LABS: BILIRUBIN,TOTAL 0.3 mg/dL (0.2-1); TOT PROT 8.2 g/dl (6.4-8.2)
[2021-10-17] MEDS: METHOCARBAMOL 500 MG TABLET PO PRN (17:46)
[2021-10-17] MEDS: BICTEGRAV/EMTRICIT/TENOFOV (BIKTARVY) 50-200-25 MG TABLET PO SCH (18:45)
[2021-10-17] MEDS: THIAMINE HCL 100 MG TABLET (FP) PO SCH (22:18)
[2021-10-18] MEDS: methaDONE HCL 10 MG TABLET PO SCH (06:09)
[2021-10-18] MEDS: diazePAM 5 MG TABLET PO SCH ×3 (06:09→22:27)
[2021-10-18] MEDS: METHOCARBAMOL 500 MG TABLET PO PRN ×2 (06:10→18:17)
[2021-10-18] MEDS: BICTEGRAV/EMTRICIT/TENOFOV (BIKTARVY) 50-200-25 MG TABLET PO SCH (07:55)
[2021-10-18] MEDS ORDERED: traZODone HCL 50 MG TABLET (FP) PO PRN (09:46)
[2021-10-18] MEDS: diazePAM 5 MG TABLET PO PRN ×2 (10:40→18:17)
[2021-10-18] MEDS: PRENATAL VITAMINS W/ FOLIC ACID TABLET (FP) PO SCH (10:41)
[2021-10-18] MEDS: THIAMINE HCL 100 MG TABLET (FP) PO SCH (22:27)
[2021-10-19 00:07] LABS: SARS-CoV-2 NAA Not Detected (Not Detected)
[2021-10-19] MEDS: methaDONE HCL 10 MG TABLET PO SCH (05:34)
[2021-10-19] MEDS ORDERED: diazePAM 5 MG TABLET PO SCH (06:00)
[2021-10-19] MEDS: BICTEGRAV/EMTRICIT/TENOFOV (BIKTARVY) 50-200-25 MG TABLET PO SCH (08:59)
[2021-10-19 09:05] VITALS: BP 106/71; PULSE 103; TEMP 96.9
[2021-10-19] MEDS: PRENATAL VITAMINS W/ FOLIC ACID TABLET (FP) PO SCH (10:25)
[2021-10-20 00:07] LABS: SARS-CoV-2 NAA Not Detected (Not Detected)
[2021-10-20] MEDS ORDERED: diazePAM 5 MG TABLET PO ONE (06:00)
== END 2021-10-19 11:08 | disposition other institution (70) | DRG 773 ==
LOC: YASAS 14:02 → Y3N 19:42
PROVIDERS: ADMIT Allergy & Immunology; ATTEND Allergy & Immunology
PROC: HZ2ZZZZ Detoxification Services for Substance Abuse Treatment (ICD-10-PCS; principal; 2021-10-16)
DX: F10.230 Alcohol dependence with withdrawal, uncomplicated (principal); F11.20 Opioid dependence, uncomplicated; Z21 Asymptomatic human immunodeficiency virus [HIV] infection status; G47.00 Insomnia, unspecified; J44.9 Chronic obstructive pulmonary disease, unspecified; Z87.891 Personal history of nicotine dependence
CPT/HCPCS: 36415; 80053; 85027; 86780; 87811; 93005; 93010; C9803-CS; U0003; U0005

== ENCOUNTER 2022-01-03 12:36 | Inpatient (IN) | payer OTHER ==
[2022-01-03] MEDS ORDERED: ONDANSETRON *ODT* 4 MG TABLET SL PRN (13:47)
[2022-01-03] MEDS ORDERED: LOPERAMIDE HCL 2 MG CAPSULE PO PRN (13:47)
[2022-01-03] MEDS ORDERED: MAG HYDROX/AL HYDROX/SIMETH 30 ML UNIT-DOSE CUP PO PRN (13:47)
[2022-01-03] MEDS ORDERED: diazePAM 5 MG TABLET PO PRN (13:47)
[2022-01-03] MEDS ORDERED: BENZOCAINE/MENTHOL (CHLORASEPTIC ) LOZENGE MM PRN (13:47)
[2022-01-03] MEDS ORDERED: NICOTINE 10 MG CARTRIDGE (INHALER) IH PRN (13:47)
[2022-01-03] MEDS ORDERED: IBUPROFEN 600 MG TABLET (FP) PO PRN (13:47)
[2022-01-03] MEDS ORDERED: ACETAMINOPHEN 325 MG TABLET (FP) PO PRN ×2 (13:47)
[2022-01-03] MEDS ORDERED: DICYCLOMINE HCL 10 MG CAPSULE PO PRN (13:47)
[2022-01-03] MEDS ORDERED: METHOCARBAMOL 500 MG TABLET PO PRN (13:47)
[2022-01-03] MEDS ORDERED: BISMUTH SUBSALICYLATE 262 MG/15 ML BTL PO PRN (13:47)
[2022-01-03] MEDS ORDERED: MAGNESIUM CITRATE 300 ML BOTTLE PO PRN (13:47)
[2022-01-03] MEDS ORDERED: IBUPROFEN 400 MG TABLET (FP) PO PRN (13:47)
[2022-01-03] MEDS ORDERED: MAGNESIUM HYDROX 2400MG/30ML ORAL SUSPENSION 30 ML CUP PO PRN (13:47)
[2022-01-03] MEDS: NICOTINE 7 MG/24 HOURS TOPICAL PATCH TD SCH (14:38)
[2022-01-03] MEDS: BICTEGRAV/EMTRICIT/TENOFOV (BIKTARVY) 50-200-25 MG TABLET PO SCH (14:38)
[2022-01-03] MEDS: hydrOXYzine PAMOATE 25 MG CAPSULE (FP) PO SCH ×3 (14:38→22:47)
[2022-01-03] MEDS: diazePAM 5 MG TABLET PO SCH ×2 (18:14→22:47)
[2022-01-03] MEDS: MELATONIN 5 MG TABLETS PO SCH (22:47)
[2022-01-03] MEDS: THIAMINE HCL 100 MG TABLET (FP) PO SCH (22:47)
[2022-01-04] MEDS: diazePAM 5 MG TABLET PO SCH ×4 (06:11→22:51)
[2022-01-04] MEDS: hydrOXYzine PAMOATE 25 MG CAPSULE (FP) PO SCH ×5 (06:12→22:50)
[2022-01-04] MEDS: BICTEGRAV/EMTRICIT/TENOFOV (BIKTARVY) 50-200-25 MG TABLET PO SCH (07:00)
[2022-01-04 10:12] LABS: HEMATOCRIT 38.1 % (35.4-49); HEMOGLOBIN 12.8 GM/dL (11.7-16.9); MCH 31.3 pg (25.7-33.7); MCHC 33.5 g/dl (32.0-35.9); MEAN CELL VOLUME 93.4 fl (80-96); MEAN PLT VOLUME 8.9 fl (7.5-11.1); PLATELET COUNT 168 10^3/uL (134-434); RBC 4.08 M/mm3 (4.00-5.60); RDW 18.7 % (11.9-15.9); WHITE BLOOD COUNT 5.9 K/mm3 (4.0-10.0)
[2022-01-04 10:33] LABS: ALBUMIN 2.9 g/dl (3.4-5.0); CALCIUM 8.8 mg/dL (8.5-10.1)
[2022-01-04 10:34] LABS: BLOOD UREA NITROGEN 13.8 mg/dL (7-18)
[2022-01-04 10:36] LABS: CREATININE 0.7 mg/dL (0.55-1.3)
[2022-01-04 10:37] LABS: BILIRUBIN,TOTAL 0.3 mg/dL (0.2-1); TOT PROT 8.8 g/dl (6.4-8.2)
[2022-01-04] MEDS ORDERED: methaDONE HCL 40 MG DISPERSABLE TABLET PO SCH (10:45)
[2022-01-04] MEDS ORDERED: methaDONE HCL 10 MG TABLET PO SCH (11:23)
[2022-01-04] MEDS: PRENATAL VITAMINS W/ FOLIC ACID TABLET (FP) PO SCH (12:25)
[2022-01-04] MEDS: NICOTINE 7 MG/24 HOURS TOPICAL PATCH TD SCH (12:26)
[2022-01-04] MEDS: CLOTRIMAZOLE 10 MG TROCHE PO SCH ×4 (13:46→22:51)
[2022-01-04] MEDS: THIAMINE HCL 100 MG TABLET (FP) PO SCH (22:50)
[2022-01-04] MEDS: MELATONIN 5 MG TABLETS PO SCH (22:51)
[2022-01-05] MEDS: hydrOXYzine PAMOATE 25 MG CAPSULE (FP) PO SCH ×5 (05:45→22:29)
[2022-01-05] MEDS: diazePAM 5 MG TABLET PO SCH ×3 (05:46→22:29)
[2022-01-05] MEDS: CLOTRIMAZOLE 10 MG TROCHE PO SCH ×5 (06:40→22:31)
[2022-01-05] MEDS: BICTEGRAV/EMTRICIT/TENOFOV (BIKTARVY) 50-200-25 MG TABLET PO SCH (10:44)
[2022-01-05] MEDS: PRENATAL VITAMINS W/ FOLIC ACID TABLET (FP) PO SCH (10:44)
[2022-01-05] MEDS: NICOTINE 7 MG/24 HOURS TOPICAL PATCH TD SCH (10:45)
[2022-01-05] MEDS: THIAMINE HCL 100 MG TABLET (FP) PO SCH (22:29)
[2022-01-05] MEDS: MELATONIN 5 MG TABLETS PO SCH (22:29)
[2022-01-06] MEDS: hydrOXYzine PAMOATE 25 MG CAPSULE (FP) PO SCH (05:28)
[2022-01-06] MEDS: CLOTRIMAZOLE 10 MG TROCHE PO SCH (05:30)
[2022-01-06] MEDS ORDERED: diazePAM 5 MG TABLET PO SCH (06:00)
[2022-01-06 07:06] VITALS: BP 108/75; PULSE 94; TEMP 97.1
[2022-01-07] MEDS ORDERED: diazePAM 5 MG TABLET PO ONE (06:00)
== END 2022-01-06 06:58 | disposition left against medical advice (07) | DRG 770 ==
LOC: YASAS 12:36 → Y3N 13:56
PROVIDERS: ADMIT Allergy & Immunology; ATTEND Surgery
PROC: HZ2ZZZZ Detoxification Services for Substance Abuse Treatment (ICD-10-PCS; principal; 2022-01-03)
DX: F10.230 Alcohol dependence with withdrawal, uncomplicated (principal); F11.20 Opioid dependence, uncomplicated; F17.210 Nicotine dependence, cigarettes, uncomplicated; F19.24 Other psychoactive substance dependence with psychoactive substance-induced mood disorder; F19.282 Other psychoactive substance dependence with psychoactive substance-induced sleep disorder; J44.9 Chronic obstructive pulmonary disease, unspecified; Z21 Asymptomatic human immunodeficiency virus [HIV] infection status; G47.00 Insomnia, unspecified; R63.4 Abnormal weight loss; Z86.19 Personal history of other infectious and parasitic diseases
CPT/HCPCS: 36415; 80053; 85027; 86780; 87811; C9803-CS; U0003; U0005

== ENCOUNTER 2022-03-09 10:41 | Inpatient (IN) | payer OTHER ==
[2022-03-09 12:13] VITALS: BMI 22.0
[2022-03-09] MEDS ORDERED: ONDANSETRON *ODT* 4 MG TABLET SL PRN (16:01)
[2022-03-09] MEDS ORDERED: BENZOCAINE/MENTHOL (CHLORASEPTIC ) LOZENGE MM PRN (16:01)
[2022-03-09] MEDS ORDERED: DICYCLOMINE HCL 10 MG CAPSULE PO PRN (16:01)
[2022-03-09] MEDS ORDERED: ACETAMINOPHEN 325 MG TABLET (FP) PO PRN ×2 (16:01)
[2022-03-09] MEDS ORDERED: LOPERAMIDE HCL 2 MG CAPSULE PO PRN (16:01)
[2022-03-09] MEDS ORDERED: IBUPROFEN 400 MG TABLET (FP) PO PRN (16:01)
[2022-03-09] MEDS ORDERED: IBUPROFEN 600 MG TABLET (FP) PO PRN (16:01)
[2022-03-09] MEDS ORDERED: BISMUTH SUBSALICYLATE 524 MG/30 ML PO PRN (16:01)
[2022-03-09] MEDS ORDERED: diazePAM 5 MG TABLET PO PRN (16:01)
[2022-03-09] MEDS ORDERED: MAG HYDROX/AL HYDROX/SIMETH 30 ML UNIT-DOSE CUP PO PRN (16:01)
[2022-03-09] MEDS ORDERED: MAGNESIUM HYDROX 2400MG/30ML ORAL SUSPENSION 30 ML CUP PO PRN (16:01)
[2022-03-09] MEDS ORDERED: METHOCARBAMOL 500 MG TABLET PO PRN (16:01)
[2022-03-09] MEDS ORDERED: NICOTINE 10 MG CARTRIDGE (INHALER) IH PRN (16:01)
[2022-03-09] MEDS ORDERED: MAGNESIUM CITRATE 300 ML BOTTLE PO PRN (16:01)
[2022-03-09] MEDS: diazePAM 5 MG TABLET PO SCH ×2 (16:48→22:45)
[2022-03-09] MEDS: hydrOXYzine PAMOATE 25 MG CAPSULE (FP) PO SCH ×2 (17:54→22:44)
[2022-03-09] MEDS: THIAMINE HCL 100 MG TABLET (FP) PO SCH (22:44)
[2022-03-09] MEDS: MELATONIN 5 MG TABLETS PO SCH (22:44)
[2022-03-10] MEDS: hydrOXYzine PAMOATE 25 MG CAPSULE (FP) PO SCH ×5 (06:23→22:44)
[2022-03-10] MEDS: diazePAM 5 MG TABLET PO SCH ×4 (06:23→22:44)
[2022-03-10] MEDS ORDERED: PRENATAL VITAMINS W/ FOLIC ACID TABLET (FP) PO SCH (10:00)
[2022-03-10] MEDS ORDERED: BICTEGRAV/EMTRICIT/TENOFOV (BIKTARVY) 50-200-25 MG TABLET PO SCH (10:00)
[2022-03-10 13:07] LABS: HEMOGLOBIN 13.8 GM/dL (11.7-16.9); MCH 32.2 pg (25.7-33.7); MCHC 32.8 g/dl (32.0-35.9); MEAN CELL VOLUME 98.2 fl (80-96); MEAN PLT VOLUME 8.8 fl (7.5-11.1); PLATELET COUNT 152 10^3/uL (134-434); RBC 4.28 M/mm3 (4.00-5.60); RDW 16.3 % (11.9-15.9); WHITE BLOOD COUNT 5.5 K/mm3 (4.0-10.0)
[2022-03-10 15:09] LABS: ALBUMIN 2.5 g/dl (3.4-5.0); BILIRUBIN,TOTAL 0.2 mg/dL (0.2-1); BLOOD UREA NITROGEN 16.4 mg/dL (7-18); CALCIUM 8.5 mg/dL (8.5-10.1); CREATININE 0.7 mg/dL (0.55-1.3)
[2022-03-10] MEDS: MELATONIN 5 MG TABLETS PO SCH (22:44)
[2022-03-10] MEDS: THIAMINE HCL 100 MG TABLET (FP) PO SCH (22:45)
[2022-03-11 04:50] VITALS: BP 117/79; PULSE 110; RESP 18; TEMP 97.5
[2022-03-11] MEDS ORDERED: diazePAM 5 MG TABLET PO SCH (06:00)
[2022-03-12] MEDS ORDERED: diazePAM 5 MG TABLET PO SCH (06:00)
[2022-03-13] MEDS ORDERED: diazePAM 5 MG TABLET PO ONE (06:00)
== END 2022-03-11 04:50 | disposition left against medical advice (07) | DRG 770 ==
LOC: SUATTDRO 10:41 → YASAS 10:41 → Y3N 16:19
PROVIDERS: ADMIT Allergy & Immunology; ATTEND Surgery
PROC: HZ2ZZZZ Detoxification Services for Substance Abuse Treatment (ICD-10-PCS; principal; 2022-03-09)
DX: F10.230 Alcohol dependence with withdrawal, uncomplicated (principal); F11.20 Opioid dependence, uncomplicated; F17.210 Nicotine dependence, cigarettes, uncomplicated; U07.1 COVID-19; Z21 Asymptomatic human immunodeficiency virus [HIV] infection status; J44.9 Chronic obstructive pulmonary disease, unspecified; R63.4 Abnormal weight loss; Z68.22 Body mass index [BMI] 22.0-22.9, adult; Z86.19 Personal history of other infectious and parasitic diseases
CPT/HCPCS: 36415; 80053; 85027; 86780; 87811; C9803-CS; U0003; U0005

== ENCOUNTER 2022-05-24 12:58 | Inpatient (IN) | payer OTHER ==
[2022-05-24 15:42] VITALS: BMI 21.1
[2022-05-24] MEDS ORDERED: MAGNESIUM HYDROX 2400MG/30ML ORAL SUSPENSION 30 ML CUP PO PRN (17:28)
[2022-05-24] MEDS ORDERED: IBUPROFEN 400 MG TABLET (FP) PO PRN (17:28)
[2022-05-24] MEDS ORDERED: LOPERAMIDE HCL 2 MG CAPSULE PO PRN (17:28)
[2022-05-24] MEDS ORDERED: DICYCLOMINE HCL 10 MG CAPSULE PO PRN (17:28)
[2022-05-24] MEDS ORDERED: NALOXONE HCL (KLOXXADO) 8 MG SPRAY NS PRN (17:28)
[2022-05-24] MEDS ORDERED: BISMUTH SUBSALICYLATE 524 MG/30 ML PO PRN (17:28)
[2022-05-24] MEDS ORDERED: BENZOCAINE/MENTHOL (CHLORASEPTIC ) LOZENGE MM PRN (17:28)
[2022-05-24] MEDS ORDERED: MAG HYDROX/AL HYDROX/SIMETH 30 ML UNIT-DOSE CUP PO PRN (17:28)
[2022-05-24] MEDS ORDERED: NICOTINE 10 MG CARTRIDGE (INHALER) IH PRN (17:28)
[2022-05-24] MEDS ORDERED: ACETAMINOPHEN 325 MG TABLET (FP) PO PRN ×2 (17:28)
[2022-05-24] MEDS ORDERED: IBUPROFEN 600 MG TABLET (FP) PO PRN (17:28)
[2022-05-24] MEDS: METHOCARBAMOL 500 MG TABLET PO PRN (18:54)
[2022-05-24] MEDS: THIAMINE HCL 100 MG TABLET (FP) PO SCH (22:45)
[2022-05-24] MEDS: MELATONIN 5 MG TABLETS PO SCH (22:45)
[2022-05-25] MEDS: METHOCARBAMOL 500 MG TABLET PO PRN ×3 (05:12→22:31)
[2022-05-25] MEDS ORDERED: chlordiazePOXIDE HCL 25 MG CAPSULE PO PRN (06:58)
[2022-05-25] MEDS: chlordiazePOXIDE HCL 25 MG CAPSULE PO SCH ×2 (07:09→10:29)
[2022-05-25] MEDS: PRENATAL VITAMINS W/ FOLIC ACID TABLET (FP) PO SCH (10:29)
[2022-05-25] MEDS ORDERED: diazePAM 5 MG TABLET PO PRN (12:06)
[2022-05-25 12:19] LABS: CALCIUM 8.6 mg/dL (8.5-10.1)
[2022-05-25 12:20] LABS: ALBUMIN 2.7 g/dl (3.4-5.0); BLOOD UREA NITROGEN 19.4 mg/dL (7-18)
[2022-05-25 12:23] LABS: CREATININE 0.8 mg/dL (0.55-1.3)
[2022-05-25 12:25] LABS: BILIRUBIN,TOTAL 0.2 mg/dL (0.2-1); TOT PROT 8.1 g/dl (6.4-8.2)
[2022-05-25 12:26] LABS: HEMATOCRIT 39.6 % (35.4-49); HEMOGLOBIN 13.3 GM/dL (11.7-16.9); MCH 33.1 pg (25.7-33.7); MCHC 33.6 g/dl (32.0-35.9); MEAN CELL VOLUME 98.5 fl (80-96); MEAN PLT VOLUME 8.4 fl (7.5-11.1); PLATELET COUNT 179 10^3/uL (134-434); RBC 4.02 M/mm3 (4.00-5.60); RDW 16.3 % (11.9-15.9); WHITE BLOOD COUNT 4.8 K/mm3 (4.0-10.0)
[2022-05-25] MEDS: BICTEGRAV/EMTRICIT/TENOFOV (BIKTARVY) 50-200-25 MG TABLET PO SCH (13:18)
[2022-05-25] MEDS ORDERED: methaDONE HCL 10 MG TABLET PO ONE (13:25)
[2022-05-25] MEDS ORDERED: methaDONE 40 MG, methaDONE 10 MG PO ONE (13:30)
[2022-05-25] MEDS: diazePAM 5 MG TABLET PO SCH ×2 (16:28→22:31)
[2022-05-25] MEDS: THIAMINE HCL 100 MG TABLET (FP) PO SCH (22:31)
[2022-05-25] MEDS: MELATONIN 5 MG TABLETS PO SCH (22:31)
[2022-05-26] MEDS ORDERED: chlordiazePOXIDE HCL 25 MG CAPSULE PO SCH (05:00)
[2022-05-26] MEDS: diazePAM 5 MG TABLET PO SCH ×2 (05:02→10:20)
[2022-05-26 09:00] VITALS: BP 131/87; PULSE 79; RESP 18; TEMP 97.3
[2022-05-26] MEDS ORDERED: methaDONE HCL 40 MG DISPERSABLE TABLET PO SCH (10:00)
[2022-05-26] MEDS: PRENATAL VITAMINS W/ FOLIC ACID TABLET (FP) PO SCH (10:22)
[2022-05-26] MEDS: BICTEGRAV/EMTRICIT/TENOFOV (BIKTARVY) 50-200-25 MG TABLET PO SCH (10:22)
[2022-05-26] MEDS ORDERED: methaDONE 40 MG, methaDONE 10 MG PO ONE (10:30)
[2022-05-27] MEDS ORDERED: chlordiazePOXIDE HCL 10 MG CAPSULE PO PRN
[2022-05-27] MEDS ORDERED: chlordiazePOXIDE HCL 10 MG CAPSULE PO SCH (05:00)
[2022-05-27] MEDS ORDERED: methaDONE 40 MG, methaDONE 10 MG PO SCH (06:00)
[2022-05-27] MEDS ORDERED: diazePAM 5 MG TABLET PO SCH (06:00)
[2022-05-28] MEDS ORDERED: chlordiazePOXIDE HCL 10 MG CAPSULE PO SCH (05:00)
[2022-05-28] MEDS ORDERED: diazePAM 5 MG TABLET PO SCH (06:00)
[2022-05-29] MEDS ORDERED: chlordiazePOXIDE HCL 10 MG CAPSULE PO ONE (05:00)
[2022-05-29] MEDS ORDERED: diazePAM 5 MG TABLET PO ONE (06:00)
== END 2022-05-26 10:50 | disposition left against medical advice (07) | DRG 770 ==
LOC: YASAS 12:58 → Y6N 17:56
PROVIDERS: ADMIT Allergy & Immunology; ATTEND Surgery
PROC: HZ2ZZZZ Detoxification Services for Substance Abuse Treatment (ICD-10-PCS; principal; 2022-05-24)
DX: F10.230 Alcohol dependence with withdrawal, uncomplicated (principal); F11.20 Opioid dependence, uncomplicated; J42 Unspecified chronic bronchitis; R63.4 Abnormal weight loss; Z68.21 Body mass index [BMI] 21.0-21.9, adult; Z86.19 Personal history of other infectious and parasitic diseases
CPT/HCPCS: 36415; 80053; 85027; 86780; C9803-CS; U0003; U0005

== ENCOUNTER 2022-08-27 13:42 | Inpatient (IN) | payer OTHER ==
[2022-08-27 14:29] VITALS: BMI 18.3
[2022-08-27] MEDS ORDERED: NICOTINE POLACRILEX 2 MG GUM BUC PRN (17:08)
[2022-08-27] MEDS ORDERED: LOPERAMIDE HCL 2 MG CAPSULE PO PRN (17:08)
[2022-08-27] MEDS ORDERED: DICYCLOMINE HCL 10 MG CAPSULE PO PRN (17:08)
[2022-08-27] MEDS ORDERED: hydrOXYzine PAMOATE 25 MG CAPSULE (FP) PO PRN (17:08)
[2022-08-27] MEDS ORDERED: MAG HYDROX/AL HYDROX/SIMETH 30 ML UNIT-DOSE CUP PO PRN (17:08)
[2022-08-27] MEDS ORDERED: IBUPROFEN 400 MG TABLET (FP) PO PRN (17:08)
[2022-08-27] MEDS ORDERED: NICOTINE 10 MG CARTRIDGE (INHALER) IH PRN (17:08)
[2022-08-27] MEDS ORDERED: ACETAMINOPHEN 325 MG TABLET (FP) PO PRN (17:08)
[2022-08-27] MEDS ORDERED: BISMUTH SUBSALICYLATE 524 MG/30 ML PO PRN (17:08)
[2022-08-27] MEDS ORDERED: POLYETHYLENE GLYCOL (HEALTHYLAX) 3350 17 GM PACKET PO PRN (17:08)
[2022-08-27] MEDS ORDERED: MAGNESIUM HYDROX 2400MG/30ML ORAL SUSPENSION 30 ML CUP PO PRN (17:08)
[2022-08-27] MEDS ORDERED: guaiFENesin 200 MG/10 ML 10 ML UNIT-DOSE CUPS PO PRN (17:08)
[2022-08-27] MEDS ORDERED: ONDANSETRON *ODT* 4 MG TABLET SL ONE (17:08)
[2022-08-27] MEDS ORDERED: BENZOCAINE/MENTHOL (CHLORASEPTIC ) LOZENGE MM PRN (17:08)
[2022-08-27] MEDS ORDERED: NALOXONE HCL (KLOXXADO) 8 MG SPRAY NS PRN (17:08)
[2022-08-27] MEDS: MELATONIN 5 MG TABLETS PO SCH (22:18)
[2022-08-27] MEDS: diazePAM 5 MG TABLET PO SCH (22:20)
[2022-08-27] MEDS: THIAMINE HCL 100 MG TABLET (FP) PO SCH (22:22)
[2022-08-28] MEDS: diazePAM 5 MG TABLET PO SCH ×4 (04:08→22:07)
[2022-08-28] MEDS: IBUPROFEN 600 MG TABLET (FP) PO PRN ×3 (04:09→22:06)
[2022-08-28] MEDS: METHOCARBAMOL 500 MG TABLET PO PRN ×3 (04:09→22:06)
[2022-08-28] MEDS: methaDONE HCL 10 MG TABLET PO SCH (07:47)
[2022-08-28] MEDS: PRENATAL VITAMINS W/ FOLIC ACID TABLET (FP) PO SCH (10:13)
[2022-08-28] MEDS: BICTEGRAV/EMTRICIT/TENOFOV (BIKTARVY) 50-200-25 MG TABLET PO SCH (11:26)
[2022-08-28] MEDS: LIDOCAINE 5% TOPICAL PATCH TP SCH (11:26)
[2022-08-28 13:16] LABS: HEMATOCRIT 37.6 % (35.4-49); HEMOGLOBIN 12.8 GM/dL (11.7-16.9); MCH 34.3 pg (25.7-33.7); MCHC 34.1 g/dl (32.0-35.9); MEAN CELL VOLUME 100.7 fl (80-96); MEAN PLT VOLUME 8.4 fl (7.5-11.1); PLATELET COUNT 219 10^3/uL (134-434); RBC 3.74 M/mm3 (4.00-5.60); RDW 17.8 % (11.9-15.9); WHITE BLOOD COUNT 4.6 K/mm3 (4.0-10.0)
[2022-08-28 13:27] LABS: CALCIUM 8.7 mg/dL (8.5-10.1)
[2022-08-28 13:28] LABS: ALBUMIN 2.9 g/dl (3.4-5.0)
[2022-08-28 13:30] LABS: CREATININE 0.7 mg/dL (0.55-1.3)
[2022-08-28 13:31] LABS: TOT PROT 7.6 g/dl (6.4-8.2)
[2022-08-28 13:34] LABS: BILIRUBIN,TOTAL 0.7 mg/dL (0.2-1)
[2022-08-28] MEDS: ACETAMINOPHEN 325 MG TABLET (FP) PO PRN (18:02)
[2022-08-28] MEDS: MELATONIN 5 MG TABLETS PO SCH (22:05)
[2022-08-28] MEDS: THIAMINE HCL 100 MG TABLET (FP) PO SCH (22:06)
[2022-08-28] MEDS: LIDOCAINE PATCH REMOVAL MC SCH (22:24)
[2022-08-29] MEDS: IBUPROFEN 600 MG TABLET (FP) PO PRN (04:04)
[2022-08-29] MEDS: diazePAM 5 MG TABLET PO SCH ×3 (05:22→22:37)
[2022-08-29] MEDS: methaDONE HCL 10 MG TABLET PO SCH (05:22)
[2022-08-29] MEDS: BICTEGRAV/EMTRICIT/TENOFOV (BIKTARVY) 50-200-25 MG TABLET PO SCH (07:39)
[2022-08-29] MEDS: diazePAM 5 MG TABLET PO PRN ×2 (10:14→17:22)
[2022-08-29] MEDS: METHOCARBAMOL 500 MG TABLET PO PRN ×2 (10:14→22:37)
[2022-08-29] MEDS: PRENATAL VITAMINS W/ FOLIC ACID TABLET (FP) PO SCH (10:14)
[2022-08-29] MEDS: LIDOCAINE 5% TOPICAL PATCH TP SCH (10:14)
[2022-08-29] MEDS: ACETAMINOPHEN 325 MG TABLET (FP) PO PRN (17:22)
[2022-08-29] MEDS ORDERED: traZODone HCL 50 MG TABLET (FP) PO ONE ×2 (21:12→22:15)
[2022-08-29 21:38] VITALS: RESP 16
[2022-08-29] MEDS: THIAMINE HCL 100 MG TABLET (FP) PO SCH (22:37)
[2022-08-29] MEDS: MELATONIN 5 MG TABLETS PO SCH (22:37)
[2022-08-29] MEDS: LIDOCAINE PATCH REMOVAL MC SCH (22:39)
[2022-08-30] MEDS: methaDONE HCL 10 MG TABLET PO SCH (05:23)
[2022-08-30] MEDS ORDERED: diazePAM 5 MG TABLET PO SCH (06:00)
[2022-08-30 06:48] VITALS: BP 144/90; PULSE 81; TEMP 97.3
[2022-08-30] MEDS: BICTEGRAV/EMTRICIT/TENOFOV (BIKTARVY) 50-200-25 MG TABLET PO SCH (07:05)
[2022-08-31] MEDS ORDERED: diazePAM 5 MG TABLET PO ONE (06:00)
== END 2022-08-30 10:00 | disposition home or self-care (01) | DRG 773 ==
LOC: YASAS 13:42 → Y3N 18:11
PROVIDERS: ADMIT Allergy & Immunology; ATTEND Surgery
PROC: HZ2ZZZZ Detoxification Services for Substance Abuse Treatment (ICD-10-PCS; principal; 2022-08-27)
DX: F11.23 Opioid dependence with withdrawal (principal); F10.230 Alcohol dependence with withdrawal, uncomplicated; G47.00 Insomnia, unspecified; Z21 Asymptomatic human immunodeficiency virus [HIV] infection status; J42 Unspecified chronic bronchitis; Z86.19 Personal history of other infectious and parasitic diseases
CPT/HCPCS: 36415; 71101-TC-LT-FY; 80053; 85027; 86780; 87811; C9803-CS; U0003; U0005

== ENCOUNTER 2022-11-15 10:49 | Inpatient (IN) | payer OTHER ==
[2022-11-15 11:59] VITALS: BMI 16.2
[2022-11-15] MEDS ORDERED: POLYETHYLENE GLYCOL (HEALTHYLAX) 3350 17 GM PACKET PO PRN (13:54)
[2022-11-15] MEDS ORDERED: NALOXONE HCL (KLOXXADO) 8 MG SPRAY NS PRN (13:54)
[2022-11-15] MEDS ORDERED: NICOTINE 10 MG CARTRIDGE (INHALER) IH PRN (13:54)
[2022-11-15] MEDS ORDERED: hydrOXYzine PAMOATE 25 MG CAPSULE (FP) PO PRN (13:54)
[2022-11-15] MEDS ORDERED: METHOCARBAMOL 500 MG TABLET PO PRN (13:54)
[2022-11-15] MEDS ORDERED: MAGNESIUM HYDROX 2400MG/30ML ORAL SUSPENSION 30 ML CUP PO PRN (13:54)
[2022-11-15] MEDS ORDERED: MAG HYDROX/AL HYDROX/SIMETH 30 ML UNIT-DOSE CUP PO PRN (13:54)
[2022-11-15] MEDS ORDERED: BENZOCAINE/MENTHOL (CHLORASEPTIC ) LOZENGE MM PRN (13:54)
[2022-11-15] MEDS ORDERED: IBUPROFEN 600 MG TABLET (FP) PO PRN (13:54)
[2022-11-15] MEDS ORDERED: ONDANSETRON *ODT* 4 MG TABLET SL PRN (13:54)
[2022-11-15] MEDS ORDERED: BISMUTH SUBSALICYLATE 524 MG/30 ML PO PRN (13:54)
[2022-11-15] MEDS ORDERED: DICYCLOMINE HCL 10 MG CAPSULE PO PRN (13:54)
[2022-11-15] MEDS ORDERED: BENZONATATE 200 MG CAPSULE PO PRN (13:54)
[2022-11-15] MEDS ORDERED: NALOXONE HCL 0.4 MG/ML VIAL IM PRN (13:54)
[2022-11-15] MEDS ORDERED: IBUPROFEN 400 MG TABLET (FP) PO PRN (13:54)
[2022-11-15] MEDS ORDERED: ACETAMINOPHEN 325 MG TABLET (FP) PO PRN (13:54)
[2022-11-15] MEDS ORDERED: diazePAM 5 MG TABLET PO PRN (13:54)
[2022-11-15] MEDS ORDERED: LOPERAMIDE HCL 2 MG CAPSULE PO PRN (13:54)
[2022-11-15] MEDS ORDERED: ALBUTEROL SO4 HFA INHALER IH PRN (14:04)
[2022-11-15] MEDS: diazePAM 5 MG TABLET PO SCH ×2 (17:40→22:29)
[2022-11-15] MEDS: MELATONIN 5 MG TABLETS PO SCH (22:28)
[2022-11-15] MEDS: THIAMINE HCL 100 MG TABLET (FP) PO SCH (22:28)
[2022-11-16] MEDS: diazePAM 5 MG TABLET PO SCH ×4 (05:23→22:17)
[2022-11-16] MEDS ORDERED: PRENATAL VITAMINS W/ FOLIC ACID TABLET (FP) PO SCH (10:00)
[2022-11-16] MEDS ORDERED: BICTEGRAV/EMTRICIT/TENOFOV (BIKTARVY) 50-200-25 MG TABLET PO SCH (10:00)
[2022-11-16] MEDS: guaiFENesin 600 MG TABLET.ER (FP) PO PRN ×2 (14:09→17:32)
[2022-11-16] MEDS ORDERED: cloNIDine HCL 0.1 MG TABLET PO PRN (15:40)
[2022-11-16] MEDS: MELATONIN 5 MG TABLETS PO SCH (22:15)
[2022-11-16] MEDS: THIAMINE HCL 100 MG TABLET (FP) PO SCH (22:16)
[2022-11-17] MEDS ORDERED: diazePAM 5 MG TABLET PO SCH (06:00)
[2022-11-17 06:19] VITALS: BP 120/72; PULSE 85; RESP 16; TEMP 97.5
[2022-11-18] MEDS ORDERED: diazePAM 5 MG TABLET PO SCH (06:00)
[2022-11-19] MEDS ORDERED: diazePAM 5 MG TABLET PO ONE (06:00)
== END 2022-11-17 06:44 | disposition left against medical advice (07) | DRG 770 ==
LOC: YASAS 10:49 → Y6N 14:45
PROVIDERS: ADMIT Allergy & Immunology; ATTEND Surgery
PROC: HZ2ZZZZ Detoxification Services for Substance Abuse Treatment (ICD-10-PCS; principal; 2022-11-15)
DX: F10.230 Alcohol dependence with withdrawal, uncomplicated (principal); F11.20 Opioid dependence, uncomplicated; F17.210 Nicotine dependence, cigarettes, uncomplicated; F19.282 Other psychoactive substance dependence with psychoactive substance-induced sleep disorder; F19.24 Other psychoactive substance dependence with psychoactive substance-induced mood disorder; F41.8 Other specified anxiety disorders; Z21 Asymptomatic human immunodeficiency virus [HIV] infection status; J44.9 Chronic obstructive pulmonary disease, unspecified; G47.00 Insomnia, unspecified; R63.4 Abnormal weight loss; Z68.1 Body mass index [BMI] 19.9 or less, adult
CPT/HCPCS: C9803-CS; U0003; U0005

== ENCOUNTER 2022-12-17 08:28 | Inpatient (IN) | payer OTHER ==
[2022-12-17 09:11] VITALS: BMI 17.9
[2022-12-17] MEDS ORDERED: MAGNESIUM HYDROX 2400MG/30ML ORAL SUSPENSION 30 ML CUP PO PRN (09:51)
[2022-12-17] MEDS ORDERED: hydrOXYzine PAMOATE 25 MG CAPSULE (FP) PO PRN (09:51)
[2022-12-17] MEDS ORDERED: DICYCLOMINE HCL 10 MG CAPSULE PO PRN (09:51)
[2022-12-17] MEDS ORDERED: LOPERAMIDE HCL 2 MG CAPSULE PO PRN (09:51)
[2022-12-17] MEDS ORDERED: IBUPROFEN 400 MG TABLET (FP) PO PRN (09:51)
[2022-12-17] MEDS ORDERED: NALOXONE HCL 0.4 MG/ML VIAL IM PRN (09:51)
[2022-12-17] MEDS ORDERED: POLYETHYLENE GLYCOL (HEALTHYLAX) 3350 17 GM PACKET PO PRN (09:51)
[2022-12-17] MEDS ORDERED: MAG HYDROX/AL HYDROX/SIMETH 30 ML UNIT-DOSE CUP PO PRN (09:51)
[2022-12-17] MEDS ORDERED: ONDANSETRON *ODT* 4 MG TABLET SL PRN (09:51)
[2022-12-17] MEDS ORDERED: ACETAMINOPHEN 325 MG TABLET (FP) PO PRN (09:51)
[2022-12-17] MEDS ORDERED: BISMUTH SUBSALICYLATE 524 MG/30 ML PO PRN (09:51)
[2022-12-17] MEDS ORDERED: NALOXONE HCL (KLOXXADO) 8 MG SPRAY NS PRN (09:51)
[2022-12-17] MEDS ORDERED: BENZONATATE 200 MG CAPSULE PO PRN (09:51)
[2022-12-17] MEDS ORDERED: guaiFENesin 600 MG TABLET.ER (FP) PO PRN (09:51)
[2022-12-17] MEDS ORDERED: IBUPROFEN 600 MG TABLET (FP) PO PRN (09:51)
[2022-12-17] MEDS ORDERED: LORazepam 1 MG TABLET PO PRN (09:51)
[2022-12-17] MEDS ORDERED: BENZOCAINE/MENTHOL (CHLORASEPTIC ) LOZENGE MM PRN (09:51)
[2022-12-17] MEDS ORDERED: LORazepam 2 MG TABLET PO ONE (10:00)
[2022-12-17] MEDS ORDERED: LORazepam 2 MG TABLET ONE (10:08)
[2022-12-17] MEDS ORDERED: PRENATAL VITAMINS W/ FOLIC ACID TABLET (FP) PO ONE (10:09)
[2022-12-17] MEDS: PRENATAL VITAMINS W/ FOLIC ACID TABLET (FP) PO SCH (10:12)
[2022-12-17] MEDS ORDERED: methaDONE HCL 10 MG TABLET PO ONE (11:07)
[2022-12-17] MEDS ORDERED: methaDONE 40 MG, methaDONE 10 MG PO ONE (11:25)
[2022-12-17 15:17] LABS: HEMOGLOBIN 13.6 GM/dL (11.7-16.9); MCH 31.5 pg (25.7-33.7); MCHC 34.1 g/dl (32.0-35.9); MEAN CELL VOLUME 92.6 fl (80-96); MEAN PLT VOLUME 8.3 fl (7.5-11.1); PLATELET COUNT 211 10^3/uL (134-434); RBC 4.32 M/mm3 (4.00-5.60); RDW 15.8 % (11.9-15.9); WHITE BLOOD COUNT 9.5 K/mm3 (4.0-10.0)
[2022-12-17 15:43] LABS: POTASSIUM 4.5 mmol/L (3.5-5.1)
[2022-12-17 15:48] LABS: CALCIUM 8.6 mg/dL (8.5-10.1)
[2022-12-17 15:49] LABS: ALBUMIN 2.8 g/dl (3.4-5.0); BLOOD UREA NITROGEN 15.2 mg/dL (7-18)
[2022-12-17 15:51] LABS: CREATININE 0.7 mg/dL (0.55-1.3)
[2022-12-17 15:52] LABS: BILIRUBIN,TOTAL 0.4 mg/dL (0.2-1); TOT PROT 8.5 g/dl (6.4-8.2)
[2022-12-17] MEDS: LORazepam 2 MG TABLET PO SCH ×2 (17:35→22:33)
[2022-12-17] MEDS: MELATONIN 5 MG TABLETS PO SCH (22:33)
[2022-12-17] MEDS: METHOCARBAMOL 500 MG TABLET PO PRN (22:33)
[2022-12-17] MEDS: THIAMINE HCL 100 MG TABLET (FP) PO SCH (22:33)
[2022-12-18] MEDS: LORazepam 2 MG TABLET PO SCH ×4 (06:00→22:07)
[2022-12-18] MEDS ORDERED: methaDONE HCL 10 MG TABLET PO SCH (06:00)
[2022-12-18] MEDS: methaDONE 40 MG, methaDONE 10 MG PO SCH (06:05)
[2022-12-18] MEDS: BICTEGRAV/EMTRICIT/TENOFOV (BIKTARVY) 50-200-25 MG TABLET PO SCH (07:02)
[2022-12-18] MEDS: LACTULOSE 20 GM/30 ML UDC (FOR ORAL USE ONLY) PO SCH ×4 (10:07→22:07)
[2022-12-18] MEDS: PRENATAL VITAMINS W/ FOLIC ACID TABLET (FP) PO SCH (10:07)
[2022-12-18] MEDS: THIAMINE HCL 100 MG TABLET (FP) PO SCH (22:07)
[2022-12-18] MEDS: MELATONIN 5 MG TABLETS PO SCH (22:07)
[2022-12-19] MEDS: methaDONE 40 MG, methaDONE 10 MG PO SCH (05:45)
[2022-12-19] MEDS: LORazepam 1 MG TABLET PO SCH ×4 (05:45→22:28)
[2022-12-19] MEDS: BICTEGRAV/EMTRICIT/TENOFOV (BIKTARVY) 50-200-25 MG TABLET PO SCH (07:28)
[2022-12-19] MEDS: LACTULOSE 20 GM/30 ML UDC (FOR ORAL USE ONLY) PO SCH ×4 (10:10→22:29)
[2022-12-19] MEDS: PRENATAL VITAMINS W/ FOLIC ACID TABLET (FP) PO SCH (10:10)
[2022-12-19] MEDS: METHOCARBAMOL 500 MG TABLET PO PRN ×2 (10:12→22:29)
[2022-12-19] MEDS: THIAMINE HCL 100 MG TABLET (FP) PO SCH (22:29)
[2022-12-19] MEDS: MELATONIN 5 MG TABLETS PO SCH (22:29)
[2022-12-20] MEDS ORDERED: LORazepam 0.5 MG TABLET PO PRN
[2022-12-20] MEDS: LORazepam 0.5 MG TABLET PO SCH ×4 (05:50→22:30)
[2022-12-20] MEDS: methaDONE 40 MG, methaDONE 10 MG PO SCH (05:50)
[2022-12-20] MEDS: BICTEGRAV/EMTRICIT/TENOFOV (BIKTARVY) 50-200-25 MG TABLET PO SCH (07:06)
[2022-12-20] MEDS: PRENATAL VITAMINS W/ FOLIC ACID TABLET (FP) PO SCH (10:36)
[2022-12-20] MEDS: LACTULOSE 20 GM/30 ML UDC (FOR ORAL USE ONLY) PO SCH ×4 (10:37→22:30)
[2022-12-20] MEDS: THIAMINE HCL 100 MG TABLET (FP) PO SCH (22:30)
[2022-12-20] MEDS: MELATONIN 5 MG TABLETS PO SCH (22:30)
[2022-12-21] MEDS ORDERED: LORazepam 0.5 MG TABLET PO ONE (05:00)
[2022-12-21] MEDS: methaDONE 40 MG, methaDONE 10 MG PO SCH (05:37)
[2022-12-21] MEDS: BICTEGRAV/EMTRICIT/TENOFOV (BIKTARVY) 50-200-25 MG TABLET PO SCH (07:22)
[2022-12-21 09:39] VITALS: BP 120/83; PULSE 91; RESP 17; TEMP 97.1
== END 2022-12-21 10:00 | disposition home or self-care (01) | DRG 773 ==
LOC: YASAS 08:28 → Y6N 10:11
PROVIDERS: ADMIT Allergy & Immunology; ATTEND Surgery
PROC: HZ2ZZZZ Detoxification Services for Substance Abuse Treatment (ICD-10-PCS; principal; 2022-12-17)
DX: F10.230 Alcohol dependence with withdrawal, uncomplicated (principal); F11.20 Opioid dependence, uncomplicated; F17.210 Nicotine dependence, cigarettes, uncomplicated; Z21 Asymptomatic human immunodeficiency virus [HIV] infection status; G47.00 Insomnia, unspecified; R79.89 Other specified abnormal findings of blood chemistry; R63.4 Abnormal weight loss; Z68.1 Body mass index [BMI] 19.9 or less, adult; Z79.899 Other long term (current) drug therapy; Z86.19 Personal history of other infectious and parasitic diseases
CPT/HCPCS: 36415; 80053; 82140; 85027; 86780; 87635; 87811

== ENCOUNTER 2023-06-14 09:57 | Inpatient (IN) | payer OTHER ==
[2023-06-14 13:42] VITALS: BMI 17.3
[2023-06-14] MEDS ORDERED: MAG HYDROX/AL HYDROX/SIMETH 30 ML UNIT-DOSE CUP PO PRN (16:14)
[2023-06-14] MEDS ORDERED: IBUPROFEN 400 MG TABLET (FP) PO PRN (16:14)
[2023-06-14] MEDS ORDERED: NALOXONE HCL 0.4 MG/ML VIAL IM PRN (16:14)
[2023-06-14] MEDS ORDERED: ONDANSETRON *ODT* 4 MG TABLET SL PRN (16:14)
[2023-06-14] MEDS ORDERED: BISMUTH SUBSALICYLATE 524 MG/30 ML PO PRN (16:14)
[2023-06-14] MEDS ORDERED: LOPERAMIDE HCL 2 MG CAPSULE PO PRN (16:14)
[2023-06-14] MEDS ORDERED: NALOXONE HCL (KLOXXADO) 8 MG SPRAY NS PRN (16:14)
[2023-06-14] MEDS ORDERED: BENZONATATE 200 MG CAPSULE PO PRN (16:14)
[2023-06-14] MEDS ORDERED: MAGNESIUM HYDROX 2400MG/30ML ORAL SUSPENSION 30 ML CUP PO PRN (16:14)
[2023-06-14] MEDS ORDERED: guaiFENesin 600 MG TABLET.ER (FP) PO PRN (16:14)
[2023-06-14] MEDS ORDERED: BENZOCAINE/MENTHOL (CHLORASEPTIC ) LOZENGE MM PRN (16:14)
[2023-06-14] MEDS ORDERED: IBUPROFEN 600 MG TABLET (FP) PO PRN (16:14)
[2023-06-14] MEDS ORDERED: POLYETHYLENE GLYCOL (HEALTHYLAX) 3350 17 GM PACKET PO PRN (16:14)
[2023-06-14] MEDS ORDERED: ACETAMINOPHEN 325 MG TABLET (FP) PO PRN (16:14)
[2023-06-14] MEDS ORDERED: DICYCLOMINE HCL 10 MG CAPSULE PO PRN (16:14)
[2023-06-14] MEDS ORDERED: ALBUTEROL SO4 HFA INHALER IH PRN (16:20)
[2023-06-14] MEDS: diazePAM 5 MG TABLET PO SCH ×2 (17:13→22:42)
[2023-06-14] MEDS: diazePAM 5 MG TABLET PO PRN (22:33)
[2023-06-14] MEDS: THIAMINE HCL 100 MG TABLET (FP) PO SCH (22:33)
[2023-06-14] MEDS: MELATONIN 5 MG TABLETS PO SCH (22:34)
[2023-06-15] MEDS: diazePAM 5 MG TABLET PO SCH ×4 (05:12→22:43)
[2023-06-15] MEDS: BICTEGRAV/EMTRICIT/TENOFOV (BIKTARVY) 50-200-25 MG TABLET PO SCH (07:11)
[2023-06-15] MEDS ORDERED: methaDONE HCL 10 MG TABLET PO SCH (07:47)
[2023-06-15] MEDS ORDERED: methaDONE 40 MG, methaDONE 20 MG PO ONE (08:15)
[2023-06-15] MEDS: PRENATAL VITAMINS W/ FOLIC ACID TABLET (FP) PO SCH (09:10)
[2023-06-15 11:37] LABS: CHLORIDE 102 mmol/L (98-107); POTASSIUM 4.1 mmol/L (3.5-5.1); SODIUM 140 mmol/L (136-145)
[2023-06-15 11:42] LABS: ANION GAP 5 mmol/L (4-13); BLOOD UREA NITROGEN 11.5 mg/dL (7-18); CALCIUM 8.5 mg/dL (8.5-10.1); CO2 33 mmol/L (21-32)
[2023-06-15 11:42] LABS: HEMATOCRIT 45.1 % (35.4-49); HEMOGLOBIN 14.6 GM/dL (11.7-16.9); MCH 31.7 pg (25.7-33.7); MCHC 32.4 g/dl (32.0-35.9); MEAN CELL VOLUME 97.7 fl (80-96); MEAN PLT VOLUME 8.4 fl (7.5-11.1); PLATELET COUNT 262 10^3/uL (134-434); RBC 4.62 M/mm3 (4.00-5.60); RDW 15.4 % (11.9-15.9); WHITE BLOOD COUNT 5.1 K/mm3 (4.0-10.0)
[2023-06-15 11:43] LABS: ALBUMIN 2.8 g/dl (3.4-5.0); GLUCOSE,RANDOM 91 mg/dL (74-106); SGPT/ALT 82 U/L (13-61)
[2023-06-15 11:45] LABS: BILIRUBIN,TOTAL 0.6 mg/dL (0.2-1)
[2023-06-15 11:46] LABS: ALK PHOS 71 U/L (45-117); CREATININE 0.7 mg/dL (0.55-1.3); SGOT/AST 127 U/L (15-37)
[2023-06-15] MEDS: LACTULOSE 20 GM/30 ML UDC (FOR ORAL USE ONLY) PO SCH ×2 (17:53→22:44)
[2023-06-15] MEDS: THIAMINE HCL 100 MG TABLET (FP) PO SCH (22:42)
[2023-06-15] MEDS: METHOCARBAMOL 500 MG TABLET PO PRN (22:42)
[2023-06-15] MEDS: hydrOXYzine PAMOATE 25 MG CAPSULE (FP) PO PRN (22:42)
[2023-06-15] MEDS: MELATONIN 5 MG TABLETS PO SCH (22:42)
[2023-06-16] MEDS: methaDONE 40 MG, methaDONE 20 MG PO SCH (06:02)
[2023-06-16] MEDS: diazePAM 5 MG TABLET PO SCH ×3 (06:02→22:24)
[2023-06-16] MEDS: BICTEGRAV/EMTRICIT/TENOFOV (BIKTARVY) 50-200-25 MG TABLET PO SCH (07:17)
[2023-06-16] MEDS: LACTULOSE 20 GM/30 ML UDC (FOR ORAL USE ONLY) PO SCH ×4 (10:15→22:24)
[2023-06-16] MEDS: PRENATAL VITAMINS W/ FOLIC ACID TABLET (FP) PO SCH (10:16)
[2023-06-16] MEDS: diazePAM 5 MG TABLET PO PRN (10:17)
[2023-06-16] MEDS: MELATONIN 5 MG TABLETS PO SCH (22:23)
[2023-06-16] MEDS: THIAMINE HCL 100 MG TABLET (FP) PO SCH (22:23)
[2023-06-16] MEDS: hydrOXYzine PAMOATE 25 MG CAPSULE (FP) PO PRN (22:23)
[2023-06-16] MEDS: METHOCARBAMOL 500 MG TABLET PO PRN (22:23)
[2023-06-17] MEDS: methaDONE 40 MG, methaDONE 20 MG PO SCH (05:03)
[2023-06-17 05:47] VITALS: BP 125/89; PULSE 89; RESP 18; TEMP 97.7
[2023-06-17] MEDS ORDERED: diazePAM 5 MG TABLET PO SCH (06:00)
[2023-06-17] MEDS: BICTEGRAV/EMTRICIT/TENOFOV (BIKTARVY) 50-200-25 MG TABLET PO SCH (07:00)
[2023-06-18] MEDS ORDERED: diazePAM 5 MG TABLET PO ONE (06:00)
== END 2023-06-17 07:00 | disposition home or self-care (01) | DRG 773 ==
LOC: YASAS 09:57 → SUATTDRO 09:57 → Y6N 16:37
PROVIDERS: ADMIT Allergy & Immunology; ATTEND Surgery
PROC: HZ2ZZZZ Detoxification Services for Substance Abuse Treatment (ICD-10-PCS; principal; 2023-06-14)
DX: F10.230 Alcohol dependence with withdrawal, uncomplicated (principal); F11.20 Opioid dependence, uncomplicated; F17.210 Nicotine dependence, cigarettes, uncomplicated; Z21 Asymptomatic human immunodeficiency virus [HIV] infection status; J42 Unspecified chronic bronchitis; G47.00 Insomnia, unspecified; R74.8 Abnormal levels of other serum enzymes; R79.89 Other specified abnormal findings of blood chemistry; R63.4 Abnormal weight loss; Z68.1 Body mass index [BMI] 19.9 or less, adult
CPT/HCPCS: 36415; 80053; 80307; 82140; 85027; 86780; 87635; 87811

== ENCOUNTER 2023-09-12 10:44 | Inpatient (IN) | payer OTHER ==
[2023-09-12 11:44] VITALS: BMI 17.9
[2023-09-12] MEDS ORDERED: ONDANSETRON *ODT* 4 MG TABLET SL PRN (12:49)
[2023-09-12] MEDS ORDERED: MAG HYDROX/AL HYDROX/SIMETH 30 ML UNIT-DOSE CUP PO PRN (12:49)
[2023-09-12] MEDS ORDERED: NICOTINE 14 MG/24 HOURS TOPICAL PATCH TD PRN (12:49)
[2023-09-12] MEDS ORDERED: BISMUTH SUBSALICYLATE 524 MG/30 ML PO PRN (12:49)
[2023-09-12] MEDS ORDERED: NALOXONE HCL (KLOXXADO) 8 MG SPRAY NS PRN (12:49)
[2023-09-12] MEDS ORDERED: DICYCLOMINE HCL 10 MG CAPSULE PO PRN (12:49)
[2023-09-12] MEDS ORDERED: NALOXONE HCL 0.4 MG/ML VIAL IM PRN (12:49)
[2023-09-12] MEDS ORDERED: guaiFENesin 600 MG TABLET.ER (FP) PO PRN (12:49)
[2023-09-12] MEDS ORDERED: POLYETHYLENE GLYCOL (HEALTHYLAX) 3350 17 GM PACKET PO PRN (12:49)
[2023-09-12] MEDS ORDERED: IBUPROFEN 400 MG TABLET (FP) PO PRN (12:49)
[2023-09-12] MEDS ORDERED: LORazepam 1 MG TABLET PO PRN (12:49)
[2023-09-12] MEDS ORDERED: MAGNESIUM HYDROX 2400MG/30ML ORAL SUSPENSION 30 ML CUP PO PRN (12:49)
[2023-09-12] MEDS ORDERED: LOPERAMIDE HCL 2 MG CAPSULE PO PRN (12:49)
[2023-09-12] MEDS ORDERED: BENZONATATE 200 MG CAPSULE PO PRN (12:49)
[2023-09-12] MEDS ORDERED: BENZOCAINE/MENTHOL (CHLORASEPTIC ) LOZENGE MM PRN (12:49)
[2023-09-12] MEDS: methaDONE 40 MG, methaDONE 20 MG PO ONE (14:08)
[2023-09-12] MEDS: LORazepam 2 MG TABLET PO SCH (17:46)
[2023-09-12] MEDS: THIAMINE HCL 100 MG TABLET (FP) PO SCH (22:28)
[2023-09-12] MEDS: MELATONIN 5 MG TABLETS PO SCH (22:28)
[2023-09-13] MEDS: buPROPion HCL 100 MG TABLET PO SCH (00:43)
[2023-09-13] MEDS: methaDONE 40 MG, methaDONE 20 MG PO SCH (05:31)
[2023-09-13] MEDS ORDERED: methaDONE HCL 10 MG TABLET PO ONE (06:00)
[2023-09-13] MEDS: PRENATAL VITAMINS W/ FOLIC ACID TABLET (FP) PO SCH (10:14)
[2023-09-13] MEDS: BICTEGRAV/EMTRICIT/TENOFOV (BIKTARVY) 50-200-25 MG TABLET PO SCH (10:14)
[2023-09-13 12:46] LABS: HEMATOCRIT 39.3 % (35.4-49); HEMOGLOBIN 12.9 GM/dL (11.7-16.9); MCH 32.2 pg (25.7-33.7); MEAN CELL VOLUME 97.7 fl (80-96); MEAN PLT VOLUME 8.6 fl (7.5-11.1); PLATELET COUNT 202 10^3/uL (134-434); RBC 4.02 M/mm3 (4.00-5.60); RDW 17.4 % (11.9-15.9); WHITE BLOOD COUNT 8.7 K/mm3 (4.0-10.0)
[2023-09-13 13:04] LABS: ANION GAP 7 mmol/L (4-13); BLOOD UREA NITROGEN 15.8 mg/dL (7-18); CALCIUM 8.2 mg/dL (8.5-10.1); CHLORIDE 104 mmol/L (98-107); CO2 29 mmol/L (21-32); POTASSIUM 4.4 mmol/L (3.5-5.1); SODIUM 140 mmol/L (136-145)
[2023-09-13 13:05] LABS: ALBUMIN 2.7 g/dl (3.4-5.0); GLUCOSE,RANDOM 98 mg/dL (74-106)
[2023-09-13 13:07] LABS: CREATININE 0.6 mg/dL (0.55-1.3); SGPT/ALT 36 U/L (13-61)
[2023-09-13 13:08] LABS: SGOT/AST 38 U/L (15-37)
[2023-09-13 13:09] LABS: BILIRUBIN,TOTAL 0.2 mg/dL (0.2-1); TOT PROT 7.3 g/dl (6.4-8.2)
[2023-09-13 13:10] LABS: ALK PHOS 113 U/L (45-117)
[2023-09-13] MEDS: DAPSONE 100 MG TABLET PO SCH (15:06)
[2023-09-14] MEDS: LORazepam 1 MG TABLET PO SCH (05:02)
[2023-09-15] MEDS ORDERED: LORazepam 0.5 MG TABLET PO PRN
[2023-09-15] MEDS: LORazepam 0.5 MG TABLET PO SCH (05:28)
[2023-09-15 21:16] VITALS: RESP 16
[2023-09-16] MEDS: ACETAMINOPHEN 325 MG TABLET (FP) PO PRN (03:02)
[2023-09-16 03:44] VITALS: BP 144/82; PULSE 96; TEMP 97.3
[2023-09-16] MEDS ORDERED: LORazepam 0.5 MG TABLET PO ONE (05:00)
[2023-09-19] MEDS ORDERED: AZITHROMYCIN 600 MG PO SCH (10:00)
== END 2023-09-16 03:51 | disposition left against medical advice (07) | DRG 770 ==
LOC: YASAS 10:44 → Y6N 13:17
PROVIDERS: ADMIT Allergy & Immunology; ATTEND Surgery
PROC: HZ2ZZZZ Detoxification Services for Substance Abuse Treatment (ICD-10-PCS; principal; 2023-09-12)
DX: F10.230 Alcohol dependence with withdrawal, uncomplicated (principal); F11.20 Opioid dependence, uncomplicated; F17.210 Nicotine dependence, cigarettes, uncomplicated; F41.8 Other specified anxiety disorders; B20 Human immunodeficiency virus [HIV] disease; G47.00 Insomnia, unspecified; H91.90 Unspecified hearing loss, unspecified ear; J44.9 Chronic obstructive pulmonary disease, unspecified; R94.31 Abnormal electrocardiogram [ECG] [EKG]; R79.89 Other specified abnormal findings of blood chemistry; Z86.19 Personal history of other infectious and parasitic diseases; Z79.899 Other long term (current) drug therapy
CPT/HCPCS: 36415; 80053; 80305; 80307; 82140; 85027; 86780; 87635; 93005; 93010

== ENCOUNTER 2025-01-29 13:41 | Inpatient (IN) | payer OTHER ==
[2025-01-29] MEDS ORDERED: guaiFENesin 600 MG TABLET.ER (FP) PO PRN (15:53)
[2025-01-29] MEDS ORDERED: IBUPROFEN 400 MG TABLET (FP) PO PRN (15:53)
[2025-01-29] MEDS ORDERED: NALOXONE HCL 0.4 MG/ML VIAL IVPUSH PRN (15:53)
[2025-01-29] MEDS ORDERED: BENZOCAINE/MENTHOL (CHLORASEPTIC ) LOZENGE MM PRN (15:53)
[2025-01-29] MEDS ORDERED: MAGNESIUM HYDROX 2400MG/30ML ORAL SUSPENSION 30 ML CUP PO PRN (15:53)
[2025-01-29] MEDS ORDERED: LOPERAMIDE HCL 2 MG CAPSULE PO PRN (15:53)
[2025-01-29] MEDS ORDERED: ACETAMINOPHEN 325 MG TABLET (FP) PO PRN (15:53)
[2025-01-29] MEDS ORDERED: hydrOXYzine PAMOATE 25 MG CAPSULE (FP) PO PRN (15:53)
[2025-01-29] MEDS ORDERED: MAG HYDROX/AL HYDROX/SIMETH 30 ML UNIT-DOSE CUP PO PRN (15:53)
[2025-01-29] MEDS ORDERED: NALOXONE (NARCAN) HCL 4 MG/0.1 ML SPRAY NS PRN (15:53)
[2025-01-29] MEDS ORDERED: BENZONATATE 200 MG CAPSULE PO PRN (15:53)
[2025-01-29] MEDS ORDERED: METHOCARBAMOL 500 MG TABLET PO PRN (15:53)
[2025-01-29] MEDS ORDERED: POLYETHYLENE GLYCOL (HEALTHYLAX) 3350 17 GM PACKET PO PRN (15:53)
[2025-01-29] MEDS: MELATONIN 5 MG TABLETS PO SCH (21:40)
[2025-01-29] MEDS: SUVOREXANT 5 MG TABLET PO SCH (21:40)
[2025-01-29] MEDS: ACAMPROSATE CALCIUM 333 MG TABLET.DR PO SCH (21:40)
[2025-01-29] MEDS: THIAMINE 100 MG TABLET PO SCH (21:40)
[2025-01-30] MEDS: BUDESONIDE/FORMETEROL FUMARATE 160/4.5 mcg INHALER IH SCH (09:54)
[2025-01-30] MEDS: ALBUTEROL SO4 HFA INHALER IH PRN (09:54)
[2025-01-30] MEDS: BICTEGRAV/EMTRICIT/TENOFOV (BIKTARVY) 50-200-25 MG TABLET PO SCH (09:55)
[2025-01-30] MEDS: PRENATAL VITAMINS W/ FOLIC ACID TABLET (FP) PO SCH (09:55)
[2025-01-30] MEDS: CALCIUM 500MG/VIT-D 200 UNITS COMBO TABLET (FP) PO SCH (09:55)
[2025-01-31] MEDS: IBUPROFEN 600 MG TABLET (FP) PO PRN (11:24)
[2025-02-03] MEDS ORDERED: BENZONATATE 200 MG CAPSULE PO PRN (12:45)
[2025-02-03] MEDS: SUVOREXANT 10 MG TABLET PO SCH (21:09)
[2025-02-03] MEDS: guaiFENesin 600 MG TABLET.ER (FP) PO PRN (21:10)
[2025-02-06] MEDS ORDERED: SUVOREXANT 10 MG TABLET PO SCH (15:51)
[2025-02-06] MEDS: SUVOREXANT 15 MG TABLET PO SCH (21:39)
[2025-02-07] MEDS: hydrOXYzine PAMOATE 25 MG CAPSULE (FP) PO PRN (21:08)
[2025-02-12] MEDS ORDERED: SUVOREXANT 10 MG TABLET PO PRN (22:00)
[2025-02-13] MEDS: CLOTRIMAZOLE 1% CREAM TP SCH (15:42)
[2025-02-13] MEDS: SUVOREXANT 15 MG TABLET PO PRN (21:40)
[2025-02-15] MEDS: SUVOREXANT 15 MG TABLET PO SCH (21:09)
[2025-02-18 05:53] VITALS: RESP 18
[2025-02-20 05:46] VITALS: TEMP 96.8
[2025-02-20 09:34] VITALS: BP 109/75; PULSE 96
== END 2025-02-20 09:46 | disposition home or self-care (01) | DRG 772 ==
LOC: YASAS 13:41 → Y3NR 13:46 → Y3W 01-30 11:46
PROVIDERS: ADMIT Psychiatry & Neurology Pain Medicine; ATTEND Psychiatry & Neurology Pain Medicine
PROC: HZ42ZZZ Group Counseling for Substance Abuse Treatment, Cognitive-Behavioral (ICD-10-PCS; principal; 2025-01-29)
DX: F10.10 Alcohol abuse, uncomplicated (principal); F14.20 Cocaine dependence, uncomplicated; J44.9 Chronic obstructive pulmonary disease, unspecified; M54.50 Low back pain, unspecified; Z21 Asymptomatic human immunodeficiency virus [HIV] infection status
CPT/HCPCS: 36415; 86803; 87491; 87522; 87591; 87661